=== PATIENT | male | born 1990 | race Two or more races ===

== ENCOUNTER 2025-01-11 07:52 | Emergency (ER) | payer MEDICAID, SELFPAY ==
[2025-01-11 07:55] VITALS: PULSE 104; RESP 16; O2SAT 95; BMI 26.1
[2025-01-11 08:00] VITALS: BP 153/103; PULSE 92; RESP 16; TEMP 36.9; O2SAT 96
--- NOTE | 2025-01-11 08:08 | EKG_ITS ---
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
--- NOTE | 2025-01-11 08:18 | XR_ITS ---
Examination: CT brain head without contrast. 2-D sagittal coronal reconstructions Date and time of exam: January 11, 2025, 0858 hours INDICATIONS: Onset altered mental status today CTDI: vol (mGy): 54.8 DLP: (mGycm): 1110 Technique: Multiple CT axial sections of the brain have been obtained, 5 mm slice thickness. Contrast has not been administered. 2-D sagittal, coronal reconstructions have been obtained Low dose protocols were performed. One or more of the following dose reduction techniques were used; automated exposure control, adjustment of the mA and/or KV according to patient size, use of iterative reconstruction technique. Findings: No significant ventricular enlargement. Intra-axial or extra-axial hemorrhage density is not seen. No mass effect or midline shift Basal cisterns are not remarkable. Fourth ventricle is midline. Cranial vault intact. Impression: Negative for acute hemorrhage, mass effect or midline shift Advise clinical correlation and follow-up accordingly
[2025-01-11 08:23] VITALS: PULSE 78
[2025-01-11] MEDS: SODIUM CHLORIDE 0.9% 1000 ML 1,000 ML IV (08:29)
[2025-01-11] MEDS: FAMOTIDINE INJ 10 MG/ML VIAL 2 ML 20 MG IVP (08:30)
[2025-01-11] MEDS: LORazepam 2 MG/ML VIAL IVP (08:31)
[2025-01-11] MEDS: FOLIC ACID 1 MG TABLET PO (08:32)
[2025-01-11 08:43] LABS: Basophils # (Auto) 0.1 Thou/mm3 (0.0-0.2); Basophils % (Auto) 1 % (0-2.5); Eosinophils # (Auto) 0.1 Thou/mm3 (0.0-0.5); Eosinophils % (Auto) 2 % (0-10); Hematocrit 40.5 % (41.0-53.0); Hemoglobin 14.9 g/dL (13.5-16.0); Immature Granulocytes Auto 0.02 Thou/mm3 (0.00-0.00); Lymphocytes # (Auto) 1.4 Thou/mm3 (1.0-4.8); Lymphocytes % (Auto) 28 % (10-50); Mean Corpuscular HGB Conc 36.8 g/dl (31.0-37.0); Mean Corpuscular Hemoglobin 33.8 pg (25.0-35.0); Mean Corpuscular Volume 92 fL (80-100); Monocytes # (Auto) 0.5 Thou/mm3 (0.0-0.8); Monocytes % (Auto) 10 % (0-12); Neutrophils # (Auto) 3.0 Thou/mm3 (1.8-7.7); Neutrophils % (Auto) 60 % (37-80); Nucleated Red Blood Cell # 0.00 Thou/mm3 (0.00-0.00); Nucleated Red Blood Cell % 0 /100 WBC (0); RDW Standard Deviation 42.2 fL (35.1-43.9); Red Blood Count 4.41 Miln/mm3 (4.50-5.90); White Blood Count 5.0 Thou/mm3 (3.8-10.6)
[2025-01-11 08:48] LABS: Platelet Count 69 Thou/mm3 (140-440)
[2025-01-11 08:52] LABS: Ammonia 59 uMol/L (11-32)
[2025-01-11] MEDS: MULTIVITAMIN 15 ML UDC PO (09:06)
[2025-01-11] MEDS: THIAMINE INJ 100 MG/ML VIAL 2 ML IVP (09:06)
[2025-01-11 09:07] LABS: INR 1.2 (0.9-1.3); Prothrombin Time 12.4 Seconds (9.0-12.2)
[2025-01-11 09:34] LABS: Acetaminophen < 2.0 mcg/mL (10.0-20.0); Alanine Aminotransferase 107 U/L (10-49); Albumin, Serum 4.8 gm/dL (3.5-5.0); Albumin/Globulin Ratio 1.6 (1.2-2.2); Alcohol, Blood Medical 156.4 mg/dL (0-10.0); Alkaline Phosphatase 121 U/L (46-116); Anion Gap 21 (7-16); Aspartate Amino Transferase 188 U/L (0-34); BUN/Creatinine Ratio 8 Ratio (12-20); Bilirubin,Total 3.2 mg/dL (0.3-1.2); Blood Urea Nitrogen < 5 mg/dL (9-23); Calcium 9.3 mg/dL (8.3-10.6); Calcium (Corrected) 9.3 mg/dL (8.5-10.1); Carbon Dioxide 21.7 mMol/L (20.0-31.0); Chloride 95 mMol/L (98-107); Creatinine (Component) 0.6 mg/dL (0.6-1.3); Estimated Creatinine Clearance 148.0 mL/min (>60); Globulin 3.0 gm/dL (2.3-3.5); Glucose 181 mg/dL (74-106); Magnesium 1.6 mg/dL (1.6-2.6); Osmolality,Calculated 277 (275-295); Salicylate < 3.0 mg/dL; Sodium 138 mMol/L (136-145); Total Protein 7.8 gm/dL (5.7-8.2); Troponin I < 0.002 ng/mL (0.0-0.045); eGFR > 60 See Note
[2025-01-11 09:35] LABS: Potassium 2.7 mMol/L (3.4-5.1)
[2025-01-11 10:05] LABS: Slide Review Platelets confirmed
--- NOTE | 2025-01-11 10:29 | EDNOTE_ITS ---
ED Alcohol RME/HPI General Chief Complaint: Alcohol Stated Complaint: WITHDRAWAL Arrival date/time: 01/11/25 07:52 Limitations: no limitations RME / HPI RME / HPI narrative: 34 year old male with no stated medical history presents to the ED BIBA from home for evaluation of palpitations and feeling shaky today. Patient reports he drinks 2 large bottles (at least) a day of Vodka. Denies any shortness of breath, chest pain, cough, nausea, vomiting, hematemesis, or abdominal pain. Patient states he is a former recreational drug user and has not used any drugs recently. No other associated symptoms or complaints reported. Related Data Previous Rx's ?Medication ?Instructions ?Recorded chlordiazepoxide HCl 25 mg capsule 25 mg PO Q6H ALCOHO L WITHDRAWAL 01/11/25 #30 caps Allergies Allergy/AdvReac Type Severity Reaction Status Date / Time No Known Allergies Allergy Verified 01/11/25 08:02 Review of Systems Review of Systems Systems Reviewed: All systems reviewed, normal except as documented Past Medical History Past Medical History CARDIAC: Negative Congestive Heart Failure RESPIRATORY: Negative Chronic Obstructive Pulmonary Disease (COPD) GENITOURINARY: Negative Renal Disease ENDOCRINE: Negative Diabetes Mellitus Type 1 or Diabetes Mellitus Type 2 Family History OTHER FAMILY HX: Mother- alcoholism Social History SMOKING STATUS: Former smoker ED Exam General Limitations: Present no limitations General appearance: Present alert and in no apparent distress Head Head exam: Present atraumatic, normocephalic and normal inspection Eye Eye exam: Present normal appearance, PERRL and EOMI ENT ENT exam: Present normal exam, normal oropharynx and mucous membranes moist Neck Neck exam: Present normal inspection, full ROM and trachea midline Chest Chest inspection: Present normal inspection and symmetric chest wall rise Respiratory Respiratory exam: Present normal lung sounds bilaterally Cardiovascular Cardiovascular exam: Present regular rate, normal rhythm and normal heart sounds Abdominal Exam Abdominal exam: Present soft and normal bowel sounds Extremities Exam Extremities exam: Present normal inspection and full ROM Back Exam Back exam: Present normal inspection and full ROM Neurological Exam Neurological exam: Present alert, oriented X3, CN II-XII intact and other (No tremor or flap ) Psychiatric Psychiatric exam: Present normal affect and normal mood Skin Skin exam: Present warm, dry, intact and normal color Course Quality Measures none Orders Category Date Time Status Bedside Blood Glucose NOW Care 01/11/25 08:18 Active Testing Lead NOW Care 01/11/25 08:18 Active Continuous Pulse Oximetry NOW Care 01/11/25 08:18 Completed EKG (ED ONLY) *Do not use* NOW Care 01/11/25 08:08 Completed Insert IV NOW Care 01/11/25 08:18 Active NPO NOW Care 01/11/25 08:[address] head/brain wo con Stat Exams 01/11/25 08:18 Completed EKG (ED Only) Stat Exams 01/11/25 08:08 Draft US gall bladder Stat Exams 01/11/25 10:31 Completed Acetaminophen Stat Lab 01/11/25 08:25 Completed Alcohol, Blood Medical Stat Lab 01/11/25 08:25 Completed Ammonia Stat Lab 01/11/25 08:25 Completed BMP [Basic Metabolic Panel] Stat Lab 01/11/25 15:23 Completed CBC Stat Lab 01/11/25 08:25 Completed Comprehensive Metabolic Panel Stat Lab 01/11/25 08:25 Completed Drug Screen,Urine Stat Lab 01/11/25 10:34 Completed Magnesium Stat Lab 01/11/25 08:25 Completed Prothrombin Time with INR Stat Lab 01/11/25 08:25 Completed Salicylate Stat Lab 01/11/25 08:25 Completed Troponin I Stat Lab 01/11/25 08:25 Completed Famotidine Inj [Pepcid Inj] Med 01/11/25 08:21 Discontinued 20 mg IVP X1 ONE Folic Acid Med 01/11/25 08:20 Discontinued 1 mg PO X1 ONE LORazepam [Ativan Inj] Med 01/11/25 08:20 Discontinued 2 mg IVP X1 ONE Multivitamin. Med 01/11/25 08:20 Discontinued 15 ml PO X1 ONE POTASSIUM CHL 10 mEq IVPB [Kcl Ivpb] 100 ml Med 01/11/25 11:45 Discontinued IV Q1H POTASSIUM CHL 20 mEq IVPB [Kcl Ivpb] Med 01/11/25 10:31 Discontinued 20 meq in 100 ml IV Q2H Potassium Chloride [K-Dur] Med 01/11/25 10:31 Discontinued 40 meq PO X1 ONE Sodium Chloride 0.9% 1000 ml [Ns] 1,000 ml Med 01/11/25 08:18 Discontinued IV 1,000 mls/hr Sodium Chloride 0.9% 1000 ml [Ns] 1,000 ml Med 01/11/25 10:45 Active IV 125 mls/hr Thiamine Inj [Vitamin B-1 Inj] Med 01/11/25 08:30 Discontinued 100 mg IVP X1 ONE Thiamine Inj [Vitamin B-1 Inj] Med 01/11/25 08:30 Discontinued 100 mg IVP X1 ONE Oxygen Delivery NOW RT 01/11/25 08:18 Active Vital Signs Vital signs: Vital Signs Temperature 98.5 F 01/11/25 08:00 Pulse Rate 92 01/11/25 08:00 Respiratory Rate 16 01/11/25 08:00 Blood Pressure 153/103 H 01/11/25 08:00 Pulse Oximetry (%) 96 01/11/25 08:00 Oxygen Delivery Method Room Air 01/11/25 08:00 Pulse ox is 96% on room air which is adequate. Discharge Plan Plan Patient Disposition: HOME (Self Care) Patient condition on transfer: Stable Prescriptions/Referrals Prescriptions/Med Rec: New chlordiazepoxide HCl 25 mg capsule 25 mg PO Q6H MDD 4 Qty: 30 0RF Referrals: [facility] [Outside] - In 1 week Problem List Clinical Impression: Alcohol withdrawal syndrome, Alcoholic intoxication Patient/Caregiver Discharge Instructions Discharge Activity: activity as tolerated Education Materials: Alcohol Withdrawal: What to Expect Additional Instructions: Please stop drinking. Do not drink alcohol while taking the Librium. Follow-up with your primary care doctor in 1-2 days for recheck. You can return to the emergency department sooner if symptoms worsen or if you notice any new, concerning issues. Print Language: Sinhala Stand Alone Forms: [facility] Award Info., Patient Portal Info Letter Alcohol MDM Narrative MDM Narrative: Emili Kilpatrick am scribing for and in the presence of Dr. Kendall. Labs reviewed and the initial potassium was 2.7. Patient was given potassium 40meq po. Repeat potassium is 4.0. Patient remains clinically stable throughout the emergency department visit. We reviewed all the results, analysis, and treatment plans. Patient is amenable to discharge. Strict return precautions were outlined. Patient data External records reviewed:: None (No previous ER visits for review ) Clinical information provided by:: patient Social determinants that could affect healthcare access:: alcohol use Patient has the following chronic illnesses:: None reported How is presenting disease/condition affected by chronic disease/condition?: no chronic disease Evaluation data The following diagnostics were reviewed and interpreted by me:: lab results, radiology exam(s) and EKG tracing(s) (EKG @ 08:11 AM. Normal sinus rhythm, rate 81, moderate intraventricular conduction delay, no STEMI. ) Lab and/or radiology exams considered but not ordered:: None Interpretation Summary: Ordering Physician: Venkat Kendall MD Date of Service: 01/11/25 Procedure(s): CT head/brain wo con Accession Number(s): [id number] cc: Venkat Kendall MD; Michael Lennon MD; NO PRIMARY/FAMILY,PHYSICIAN~ Examination: CT brain head without contrast. 2-D sagittal coronal reconstructions Date and time of exam: January 11, 2025, 0858 hours INDICATIONS: Onset altered mental status today CTDI: vol (mGy): 54.8 DLP: (mGycm): 1110 Technique: Multiple CT axial sections of the brain have been obtained, 5 mm slice thickness. Contrast has not been administered. 2-D sagittal, coronal reconstructions have been obtained Low dose protocols were performed. One or more of the following dose reduction techniques were used; automated exposure control, adjustment of the mA and/or KV according to patient size, use of iterative reconstruction technique. Findings: No significant ventricular enlargement. Intra-axial or extra-axial hemorrhage density is not seen. No mass effect or midline shift Basal cisterns are not remarkable. Fourth ventricle is midline. Cranial vault intact. Impression: Negative for acute hemorrhage, mass effect or midline shift Advise clinical correlation and follow-up accordingly Dictated By: Michael Lennon MD Signed By: <Electronically signed by Michael Lennon MD in OV> 01/11/25 1000 Medications / Prescriptions Medications or Prescriptions considered but not ordered:: None Medication administrations:: Medication Administration History Sodium Chloride (Ns) 1,000 mls @ 125 mls/hr IV .Q8H ONE Stop: 01/11/25 18:44 Last Admin: 01/11/25 11:57 Dose: 125 mls/hr Documented By: ANIL Discontinued Medications Famotidine (Famotidine Inj 10 Mg/Ml Vial 2 Ml) 20 mg IVP X1 ONE Stop: 01/11/25 08:22 Last Admin: 01/11/25 08:30 Dose: 20 mg Documented By: ANIL Folic Acid (Folic Acid 1 Mg Tablet) 1 mg PO X1 ONE Stop: 01/11/25 08:21 Last Admin: 01/11/25 08:32 Dose: 1 mg Documented By: DB Sodium Chloride (Ns) 1,000 mls @ 1,000 mls/hr IV .Q1H ONE Stop: 01/11/25 09:17 Last Infusion: 01/11/25 09:36 Dose: Infused Documented By: Admin: 01/11/25 08:29 Dose: 1,000 mls/hr Documented By: ANIL Potassium Chloride (Kcl Ivpb) 20 meq in 100 mls @ 50 mls/hr IV Q2H ARI Stop: 01/11/25 14:30 Last Admin: 01/11/25 11:44 Dose: Not Given Documented By: ANIL Non-Admin Reason: Cancelled by Provider Potassium Chloride (Kcl Ivpb) 100 mls @ 100 mls/hr IV Q1H ARI Stop: 01/11/25 15:44 Last Infusion: 01/11/25 17:09 Dose: Infused Documented By: Admin: 01/11/25 15:49 Dose: 100 mls/hr Documented By: Infusion: 01/11/25 15:20 Dose: Infused Documented By: Admin: 01/11/25 14:05 Dose: 80 mls/hr Documented By: Infusion: 01/11/25 14:05 Dose: Infused Documented By: Admin: 01/11/25 13:06 Dose: 100 mls/hr Documented By: Infusion: 01/11/25 12:56 Dose: Infused Documented By: Admin: 01/11/25 11:56 Dose: 100 mls/hr Documented By: ANIL Lorazepam (Lorazepam 2 Mg/Ml Vial) 2 mg IVP X1 ONE Stop: 01/11/25 08:21 Last Admin: 01/11/25 08:31 Dose: 2 mg Documented By: ANIL Multivitamins/Minerals (Multivitamin 15 Ml Udc) 15 ml PO X1 ONE Stop: 01/11/25 08:21 Last Admin: 01/11/25 09:06 Dose: 15 ml Documented By: ANIL Potassium Chloride (Potassium Chloride 20 Meq Tabcr) 40 meq PO X1 ONE Stop: 01/11/25 10:32 Last Admin: 01/11/25 11:53 Dose: 40 meq Documented By: ANIL Thiamine HCl (Thiamine Inj 100 Mg/Ml Vial 2 Ml) 100 mg IVP X1 ONE Stop: 01/11/25 08:31 Thiamine HCl (Thiamine Inj 100 Mg/Ml Vial 2 Ml) 100 mg IVP X1 ONE Stop: 01/11/25 08:31 Last Admin: 01/11/25 09:06 Dose: 100 mg Documented By: DB See above Consultations Consultation(s) initiated? (list below): No Diagnosis Most likely diagnosis given after review of the tests above:: Alcohol withdrawal syndrome Alcohol intoxication Admission Indicated Admission indicated?: not indicated Admission Request Was there a request for admission?: No Disposition Plan Disposition Plan: Discharge Discharge Attestation Discharge Attestation: The patient and all family members were given an opportunity to ask questions and understood the discharge instructions. Discharge instructions specifically effects, indications for sooner follow up or return to the emergency department, and the expected course of current diagnosis. Patient condition: Stable
--- NOTE | 2025-01-11 10:31 | XR_ITS ---
Examination: Abdomen sonogram, Limited Date and time of exam: January 11, 2025, 1124 hours INDICATIONS: Cardiac palpitations today, elevated liver enzymes on laboratory examination today Technique: Real-time donovan scale transabdominal sonographic images of the upper abdomen obtained. Findings: Normal gallbladder Normal common bile duct 0.3 cm Pancreatic head 3.0 cm Liver 21.7 cm fatty infiltration Normal hepatopetal portal venous flow Patent IVC IMPRESSION: Normal gallbladder Significant hepatomegaly fatty infiltration no focal liver lesions
[2025-01-11 10:45] VITALS: BP 127/79; PULSE 99; RESP 18; TEMP 37.1; O2SAT 95
[2025-01-11 11:02] LABS: Amphetamine/Methamp Scrn,U Negative (Negative); Barbiturate Screen,Urine Negative (Negative); Benzodiazepines Screen,Urine Negative (Negative); Benzoylecgonine Screen, Ur Negative (Negative); Fentanyl Screen,Urine Negative (Negative); Opiate Screen,Urine Negative (Negative); THC Screen,Urine Negative (Negative)
[2025-01-11] MEDS: POTASSIUM CHL 10 mEq IVPB 100 ML 100 MEQ IV ×3 (11:56→15:49)
[2025-01-11] MEDS: SODIUM CHLORIDE 0.9% 1000 ML 1,000 ML 125 ML IV (11:57)
[2025-01-11 12:51] VITALS: BP 135/78; PULSE 105; RESP 20; TEMP 37.7; O2SAT 96
[2025-01-11] MEDS: POTASSIUM CHL 10 mEq IVPB 100 ML 80 MEQ IV (14:05)
[2025-01-11 16:00] LABS: Anion Gap 14 (7-16); BUN/Creatinine Ratio 8 Ratio (12-20); Blood Urea Nitrogen < 5 mg/dL (9-23); Calcium 8.7 mg/dL (8.3-10.6); Carbon Dioxide 23.4 mMol/L (20.0-31.0); Chloride 101 mMol/L (98-107); Creatinine (Component) 0.6 mg/dL (0.6-1.3); Estimated Creatinine Clearance 148.0 mL/min (>60); Glucose 143 mg/dL (74-106); Osmolality,Calculated 274 (275-295); Potassium 4.0 mMol/L (3.4-5.1); Sodium 138 mMol/L (136-145); eGFR > 60 See Note
[2025-01-11 18:04] VITALS: BP 117/85; PULSE 87; RESP 16; TEMP 36.7; O2SAT 99
== END 2025-01-11 18:04 | disposition home or self-care (01) ==
PROVIDERS: Emergency Provider Family Medicine
DX: F10.239 Alcohol dependence with withdrawal, unspecified (principal)
CPT/HCPCS: 36415; 70450; 76705; 80048; 80053; 80307; 80320; 80329; 82140; 83735; 84484; 85025; 85610; 93005; 96361; 96365; 96375; 99285; J2060; J3411; J3480; J3490; J7030; A9270; G0480

== ENCOUNTER 2025-02-09 13:44 | Inpatient (IN) | payer MEDICAID, SELFPAY ==
[2025-02-09] VITALS (8 sets, daily range): BP systolic 116–148; BP diastolic 69–91; PULSE 84–110; RESP 14–20; TEMP 36.6–37.1; O2SAT 95–99; BMI 25.2
--- NOTE | 2025-02-09 14:23 | EKG_ITS ---
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
--- NOTE | 2025-02-09 14:23 | XR_ITS ---
EXAMINATION: PA chest single view TECHNIQUE: Upright PA chest single view Date and time: February 09, 2025, 1453 hours INDICATIONS: Tachycardia dizziness shortness of breath today. FINDINGS: Normal heart size Mild elevation right hemidiaphragm. No pneumonia or pulmonary edema IMPRESSION: No active disease
--- NOTE | 2025-02-09 14:23 | PD.EDRME ---
Rapid Medical Screening Exam [facility] Arrival date/time: 02/09/25 13:44 34-year-old male with no known medical history presents to the emergency room with a chief complaint of palpitations and chest pain x 3 hours. Patient states he is a daily alcoholic drinker I have greeted and performed a focused initial assessment of this patient. A comprehensive ED assessment and evaluation of the patient, analysis of all test results, and completion of the medical decision making process will be conducted by additional ED providers. Chief Complaint: Arrhythmia/Palpitations Time Seen by Provider: 02/09/25 14:19 Vital signs: Vital Signs Temperature 98.8 F 02/09/25 14:13 Pulse Rate 100 02/09/25 14:13 Respiratory Rate 18 02/09/25 14:13 Blood Pressure 148/82 H 02/09/25 14:13 Pulse Oximetry (%) 95 02/09/25 14:13 Oxygen Delivery Method Room Air 02/09/25 14:13 Vital signs reviewed by provider: Yes Exam: Strong and regular rhythm Clear bilateral lung sounds GCS of 15 Clinical Impression: Alcohol withdrawals/STEMI/NSTEMI
--- NOTE | 2025-02-09 15:02 | PD.EDALCOH ---
ED Alcohol RME/HPI General Chief Complaint: Arrhythmia/Palpitations Stated Complaint: HEART PALPITATIONS SINCE AM, C/P, ETOH ABUSE HX Time Seen by Provider: 02/09/25 14:19 Arrival date/time: 02/09/25 13:44 RME / HPI RME / HPI narrative: 02/09/25 13:44 34-year-old male with no known medical history presents to the emergency room with a chief complaint of palpitations and chest pain x 3 hours. Patient states he is a daily alcoholic drinker I have greeted and performed a focused initial assessment of this patient. A comprehensive ED assessment and evaluation of the patient, analysis of all test results, and completion of the medical decision making process will be conducted by additional ED providers. DR. IRBY MAIN ED EVALUATION 34 year old male with history of alcohol abuse, presents to the ED for evaluation of palpitations, feeling shaky, and anxious today. Accompanied by nausea and nonbloody vomiting. Patient reports he drinks 2 large bottles of Vodka a day over the last month. 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 Patient states he was evaluated here for similar symptoms 1 month ago and sent home with a prescription for his alcohol withdrawal. However, states he only took half of the medication and continued to drink. While in the ED, patient states he wants to stop drinking. Denies going to alcohol anonymous or rehab. Denies any shortness of breath, chest pain, cough, or abdominal pain. Exam: Strong and regular rhythm Clear bilateral lung sounds GCS of 15 Impression: Alcohol withdrawals/STEMI/NSTEMI Related Data Previous Rx's ?Medication ?Instructions ?Recorded chlordiazepoxide HCl 25 mg capsule 25 mg PO Q6H ALCOHOL WITHDRAWAL 01/11/25 #30 caps Allergies Allergy/AdvReac Type Severity Reaction Status Date / Time No Known Allergies Allergy Verified 02/09/25 13:48 Review of Systems Review of Systems Systems Reviewed: All systems reviewed, normal except as documented Past Medical History Past Medical History CARDIAC: Negative Congestive Heart Failure RESPIRATORY: Negative Chronic Obstructive Pulmonary Disease (COPD) GENITOURINARY: Negative Renal Disease ENDOCRINE: Negative Diabetes Mellitus Type 1 or Diabetes Mellitus Type 2 Social History SMOKING STATUS: Never smoker ED Exam Narrative Physical exam: Constitutional: Awake, alert, appears uncomfortable, positive odor of etoh HEENT: Normocephalic, atraumatic, extraocular movements intact. Neck: Supple CV: Regular rate and rhythm, no murmurs/rubs/gallops Lungs: Clear to auscultation BL, no respiratory distress. Abd: Soft, NT, ND, no HSM noted to palpation Extremities: No deformities, no edema noted Neuro: AAOx3, CN 2-12 GIBL, no acute neuro deficit noted. Skin: Warm, dry, intact Course Course Course Narrative: 1800h: Care signed out to Dr. Gerardo pending reevaluation and final disposition. Quality Measures none Orders Category Date Time Status EKG (ED ONLY) *Do not use* NOW Care 02/09/25 14:23 Completed EKG (ED Only) Stat Exams 02/09/25 14:23 Draft XR chest 1V portable Stat Exams 02/09/25 14:23 Completed Alcohol, Blood Medical Stat Lab 02/09/25 15:26 Completed B-Type Natriuretic Peptide Stat Lab 02/09/25 15:26 Completed CBC Stat Lab 02/09/25 15:26 Completed Comprehensive Metabolic Panel Stat Lab 02/09/25 15:26 Completed Drug Screen,Urine Stat Lab 02/09/25 15:26 Completed Free T4 (Free Thyroxine) Stat Lab 02/09/25 15:26 Completed Magnesium Stat Lab 02/09/25 15:26 Completed Partial Thromboplastin Time Stat Lab 02/09/25 15:26 Completed Prothrombin Time with INR Stat Lab 02/09/25 15:26 Completed TSH [Thyroid Stimulating Hormone] Stat Lab 02/09/25 15:26 Completed Troponin I Stat Lab 02/09/25 15:26 Completed Urinalysis, C/S if Indicated Stat Lab 02/09/25 15:26 Completed LORazepam [Ativan Inj] Med 02/09/25 15:12 Discontinued 1 mg IVP X1 ONE Ondansetron Inj [Zofran Inj] Med 02/09/25 15:13 Discontinued 4 mg IVP X1 ONE Ringers Lactated 1000 ml [Lactated Ringers] 1,000 ml Med 02/09/25 15:12 Discontinued IV 999 mls/hr Thiamine [Vitamin B-1] Med 02/09/25 15:13 Discontinued 100 mg PO X1 ONE Vital Signs Vital signs: Vital Signs Temperature 98.8 F 02/09/25 14:13 Pulse Rate 100 02/09/25 14:13 Respiratory Rate 18 02/09/25 14:13 Blood Pressure 148/82 H 02/09/25 14:13 Pulse Oximetry (%) 95 02/09/25 14:13 Oxygen Delivery Method Room Air 02/09/25 14:13 Pulse ox is 95% on room air which is adequate. Discharge Plan Prescriptions/Referrals Prescriptions/Med Rec: No Action chlordiazepoxide HCl 25 mg capsule 25 mg PO Q6H MDD 4 Qty: 30 0RF Referrals: No Primary/Family,Physician [Primary Care Provider] - In 1 week Problem List Clinical Impression: Palpitations, Alcohol abuse Patient/Caregiver Discharge Instructions Print Language: Azeri Alcohol MDM Narrative MDM Narrative: Emili Kilpatrick am scribing for and in the presence of Dr. Irby. Patient data External records reviewed:: [facility] previous records Clinical information provided by:: patient Social determinants that could affect healthcare access:: alcohol use Patient has the following chronic illnesses:: Alcohol abuse How is presenting disease/condition affected by chronic disease/condition?: exacerbated by Evaluation data The following diagnostics were reviewed and interpreted by me:: lab results, radiology exam(s) and EKG tracing(s) (EKG @ 14:25h, interpreted by me, sinus tachycardia with short CO interval, rate 105, no STEMI. ) Lab and/or radiology exams considered but not ordered:: None Interpretation Summary: Ordering Physician: Gordon Mcghee Date of Service: 02/09/25 Procedure(s): XR chest 1V portable Accession Number(s): [id number] cc: Gordon Mcghee; Michael Lennon MD~ EXAMINATION: PA chest single view TECHNIQUE: Upright PA chest single view Date and time: February 09, 2025, 1453 hours INDICATIONS: Tachycardia dizziness shortness of breath today. FINDINGS: Normal heart size Mild elevation right hemidiaphragm. No pneumonia or pulmonary edema IMPRESSION: No active disease Dictated By: Michael Lennon MD Signed By: <Electronically signed by Michael Lennon MD in OV> 02/09/25 1454 Medications / Prescriptions Medications or Prescriptions considered but not ordered:: None Medication administrations:: Medication Administration History Discontinued Medications Lactated Ringer's (Lactated Ringers) 1,000 mls @ 999 mls/hr IV .Q1H1M ONE Stop: 02/09/25 16:12 Last Admin: 02/09/25 16:21 Dose: 999 mls/hr Documented By: CS Lorazepam (Lorazepam 2 Mg/Ml Vial) 1 mg IVP X1 ONE Stop: 02/09/25 15:13 Last Admin: 02/09/25 16:36 Dose: 1 mg Documented By: CS Ondansetron HCl (Ondansetron Inj 2 Mg/Ml Inj 2 Ml) 4 mg IVP X1 ONE; Protocol Stop: 02/09/25 15:14 Last Admin: 02/09/25 16:22 Dose: 4 mg Documented By: CS Thiamine HCl (Thiamine 100 Mg Tablet) 100 mg PO X1 ONE Stop: 02/09/25 15:14 Last Admin: 02/09/25 16:26 Dose: 100 mg Documented By: CS See above Consultations Consultation(s) initiated? (list below): No Diagnosis Most likely diagnosis given after review of the tests above:: Alcohol intoxication Admission Indicated Admission indicated?: not indicated Explain why admission is indicated or not indicated:: Signed out to Dr. Gerardo pending final disposition. Admission Request Was there a request for admission?: No Disposition Plan Disposition Plan: other (specify) (Signed out to Dr. Gerardo )
[2025-02-09 15:35] LABS: Collection Type, Urine Clean Catch; Squamous Epithelial Cell,Urine 0 /hpf (0-5)
[2025-02-09 15:48] LABS: Bacteria,Urine Rare; Bilirubin,Urine Negative (Negative); Blood,Urine Negative (Negative); Color,Urine Yellow (Lt Yel-Yel); Culture Indicated,Urine Not Indicated; Glucose, Urine Negative (Negative); Ketones,Urine Negative (Negative); Leukocyte Esterase,Urine Negative (Negative); Nitrite,Urine Negative (Negative); PH,Urine 6.5 (5.0-7.0); Protein,Urine 1+ (Neg - Trace); RBC,Urine 4 /hpf (0-3); Specific Gravity,Urine 1.010 (1.001-1.035); Urobilinogen,Urine Negative mg/dL (0.0-1.0); WBC,Urine 2 /hpf (0-5)
[2025-02-09 15:49] LABS: Amphetamine/Methamp Scrn,U Negative (Negative); Barbiturate Screen,Urine Negative (Negative); Benzodiazepines Screen,Urine Positive (Negative); Benzoylecgonine Screen, Ur Negative (Negative); Fentanyl Screen,Urine Negative (Negative); Opiate Screen,Urine Negative (Negative); THC Screen,Urine Negative (Negative)
[2025-02-09 15:50] LABS: Basophils # (Auto) 0.1 Thou/mm3 (0.0-0.2); Basophils % (Auto) 1 % (0-2.5); Eosinophils # (Auto) 0.2 Thou/mm3 (0.0-0.5); Eosinophils % (Auto) 3 % (0-10); Hematocrit 35.9 % (41.0-53.0); Hemoglobin 12.5 g/dL (13.5-16.0); Immature Granulocytes Auto 0.05 Thou/mm3 (0.00-0.00); Lymphocytes # (Auto) 1.7 Thou/mm3 (1.0-4.8); Lymphocytes % (Auto) 22 % (10-50); Mean Corpuscular HGB Conc 34.8 g/dl (31.0-37.0); Mean Corpuscular Hemoglobin 33.4 pg (25.0-35.0); Mean Corpuscular Volume 96 fL (80-100); Monocytes # (Auto) 0.4 Thou/mm3 (0.0-0.8); Monocytes % (Auto) 5 % (0-12); Neutrophils # (Auto) 5.1 Thou/mm3 (1.8-7.7); Neutrophils % (Auto) 68 % (37-80); Nucleated Red Blood Cell # 0.00 Thou/mm3 (0.00-0.00); Nucleated Red Blood Cell % 0 /100 WBC (0); Platelet Count 104 Thou/mm3 (140-440); RDW Standard Deviation 50.5 fL (35.1-43.9); Red Blood Count 3.74 Miln/mm3 (4.50-5.90); White Blood Count 7.5 Thou/mm3 (3.8-10.6)
[2025-02-09 16:08] LABS: INR 1.1 (0.9-1.3); Partial Thromboplastin Time 30.6 Seconds (22.0-36.0); Prothrombin Time 11.5 Seconds (9.0-12.2)
[2025-02-09 16:09] LABS: B-Type Natriuretic Peptide < 20 pg/mL (0-100)
[2025-02-09 16:20] LABS: Alanine Aminotransferase 45 U/L (10-49); Albumin, Serum 4.7 gm/dL (3.5-5.0); Albumin/Globulin Ratio 1.3 (1.2-2.2); Alcohol, Blood Medical 317.6 mg/dL (0-10.0); Alkaline Phosphatase 194 U/L (46-116); Anion Gap 12 (7-16); Aspartate Amino Transferase 163 U/L (0-34); BUN/Creatinine Ratio 10 Ratio (12-20); Bilirubin,Total 4.4 mg/dL (0.3-1.2); Blood Urea Nitrogen < 5 mg/dL (9-23); Calcium 9.0 mg/dL (8.3-10.6); Calcium (Corrected) 9.0 mg/dL (8.5-10.1); Carbon Dioxide 24.7 mMol/L (20.0-31.0); Chloride 105 mMol/L (98-107); Creatinine (Component) 0.5 mg/dL (0.6-1.3); Estimated Creatinine Clearance 191.4 mL/min (>60); Free T4 (Free Thyroxine) 1.46 ng/dL (0.89-1.76); Globulin 3.5 gm/dL (2.3-3.5); Glucose 118 mg/dL (74-106); Magnesium 2.1 mg/dL (1.6-2.6); Osmolality,Calculated 281 (275-295); Potassium 3.4 mMol/L (3.4-5.1); Sodium 142 mMol/L (136-145); Thyroid Stimulating Hormone 1.28 uIU/mL (0.55-4.78); Total Protein 8.2 gm/dL (5.7-8.2); Troponin I < 0.002 ng/mL (0.0-0.045); eGFR > 60 See Note
[2025-02-09 16:21] LABS: Clarity,Urine Hazy (Clear/Hazy)
[2025-02-09] MEDS: RINGERS LACTATED 1000 ML 1,000 ML 999 ML IV ×2 (16:21→21:25)
[2025-02-09] MEDS: ONDANSETRON INJ 2 MG/ML INJ 2 ML 4 MG IVP (16:22)
[2025-02-09] MEDS: THIAMINE 100 MG TABLET PO (16:26)
[2025-02-09] MEDS: LORazepam 2 MG/ML VIAL 1 MG IVP (16:36)
--- NOTE | 2025-02-09 18:33 | PD.EDADDENDU ---
Emergency Room Addendum Addendum Narrative: 1800: Care assumed from Dr. Sarmiento (emergency physician). Past medical, surgical, social and family history reviewed. Vitals and home medications reviewed. Results and treatment plan discussed. I will assume the care of the patient at this time and will follow the patient, pending labs and MTF. The following addendum documentation note is intended to reflect any pending information, findings, or radiology results not included in the patient?s initial chart by the previous shift scribe. 20:42 - Assumed care of this long-term alcoholic presenting with presumptive withdrawal who drinks up to 1 quart of Vodka and a 12-pack of beer per day, most recently this AM, with palpitations and lightheadedness, although no near-syncope. Denies sustained chest pain. Patient tachycardic throughout ED course with slight tremor. Additionally, patient is mildly jaundiced, and likely experiencing alcohol hepatitis. Patient counseled at length about alcohol cessation and will place on B-jame and Benzodiazepine taper with recommendation to include close F/U with PMD for further evaluation. Patient acknowledges that if he were to drink alcohol with Benzodiazepine that will be prescribed, that this may lead to . Final diagnosis is alcohol withdrawal. 22:18 - Discussed with resident physician, Dr. Tavares, for admission. Reviewed the patient?s HPI, PMHx, lab and/or radiology results. Discussed treatment plan. Will consult an admission to the hospitalist. 22:26 - Patient became excessively tachycardic after assuming upright position at time of dc. Hospitalist consulted for consideration of admission for withdrawal syndrome. Critical Care Time Critical Care Time Critical Care Time: Yes Total Critical Care Time (min.): 40 Attestation: The high probability of sudden, clinically significant deterioration in the patient?s condition required the highest level of my preparedness to intervene urgently. The services I provided to this patient were to treat and/or prevent clinically significant deterioration. Services included the following: chart data review, reviewing nursing notes and/or old charts, documentation time, senior solutions workflow consultant collaboration regarding findings and treatment options, medication orders and management, direct patient care, vital sign assessments and ordering, interpreting and reviewing diagnostic studies and lab tests. Aggregate critical care time includes only time during which I was engaged in work directly related to the patient?s care, as described above, whether at bedside or elsewhere in the Emergency Department. It did not include time spent performing other reported procedures or the services of residents, students, nurses or physician assistants.
[2025-02-09] MEDS: METOPROLOL TARTRATE 25 MG TABLET 12.5 MG PO (20:47)
[2025-02-09] MEDS: MIDAZOLAM INJ 1 MG/ML VIAL 2 ML 2 MG IVP (22:46)
[2025-02-09] MEDS: METOCLOPRAMIDE INJ 5 MG/ML VIAL 2 ML 10 MG IVP (22:47)
--- NOTE | 2025-02-09 23:50 | PD.RESHP ---
Documentation for date of: 02/09/25 [facility] History of Present Illness History of present illness: 34-year-old male with a history of heavy alcohol use presents to the ED with complaints of palpitations, shakiness, anxiety, nausea, and nonbloody vomiting. He reports consuming 12 pack of Budweiser's and 1 bottle of vodka daily for the past month, with his last drink 1 hour prior to arrival. The patient was previously evaluated in the ED for similar symptoms one month ago and was prescribed medication for alcohol withdrawal. However, he admits to taking only half of the prescribed medication and continuing to drink. While in the ED, the patient expresses a desire to stop drinking but has not sought help through Alcoholics Anonymous or formal rehabilitation. He denies any chest pain, shortness of breath, cough, or abdominal pain. ED course: Initial vitals include T98.8, BP 148/82, HR 100, RR 18, O2 sat 95% on room air. Notable labs include hemoglobin 12.5, MCV 96, sodium 142, potassium 3.4, creatinine 0.5, glucose 118, T. bili 4.4, D bili 3.6, AST 163, ALT 45. Chest x-ray clear. EKG showed sinus tachycardia, rate 104, QTc 456 ms. UA clear. Past medical history: As stated above. Allergies: NKDA. Family history: Noncontributory. Social history: Chronic alcohol use, no smoking, uses cocaine, last used 1 month ago. Patient admitted for alcohol withdrawals. Review of Systems Review of Systems Narrative Review of Systems: All systems reviewed negative unless stated otherwise above. Exam Vital Signs Temp Pulse Resp BP Pulse Ox O2 Del Method 97.8 F 92 20 126/81 98 Room Air 02/09/25 22:15 02/09/25 23:13 02/09/25 23:13 02/09/25 23:13 02/09/25 23:13 02/09/25 23:13 Narrative Exam General: AOx3, no acute distress, able to speak full sentences, bilateral tremors of the hands, Japanese-speaking HEENT: NC/AT, mucous membranes moist, bilateral sclera anicteric Cardiovascular: regular rate and rhythm, S1/S2 present, no murmurs appreciated Pulmonary: clear to auscultation bilaterally, no rales/rhonchi/wheezes Abdominal: soft, non-tender, non-distended, no rebound/guarding, normal bowel sounds present Musculoskeletal: normal ROM, no peripheral edema Skin: warm and dry, intact, no rashes, Neuro: CN II-XII intact, no focal deficits Results: Labs 02/10/25 05:45 02/10/25 05:45 Labs: Short CBC 02/09/25 Range/Units 15:26 WBC 7.5 (3.8-10.6) Thou/mm3 Hgb 12.5 L (13.5-16.0) g/dL Hct 35.9 L (41.0-53.0) % Plt Count 104 L D (140-440) Thou/mm3 BMP 02/09/25 15:26 Sodium 142 Potassium 3.4 Chloride 105 Carbon Dioxide 24.7 BUN < 5 L Creatinine 0.5 L Glucose 118 H Calcium 9.0 Cardiac Enzymes 02/09/25 Range/Units 15:26 Troponin I < 0.002 (0.0-0.045) ng/mL Liver Function 02/09/25 Range/Units 15:26 Total Bilirubin 4.4 H (0.3-1.2) mg/dL AST 163 H (0-34) U/L ALT 45 (10-49) U/L Alkaline Phosphatase 194 H (46-116) U/L Albumin 4.7 (3.5-5.0) gm/dL Urine 02/09/25 Range/Units 15:26 Urine Color Yellow (Lt Yel-Yel) Urine Clarity Hazy (Clear/Hazy) Urine pH 6.5 (5.0-7.0) Ur Specific [place] 1.010 (1.001-1.035) Urine Protein 1+ A (Neg - Trace) Urine Glucose (UA) Negative (Negative) Quality Measures Quality Measures VTE prophylaxis Medications Home Medications and Allergies Allergies Allergy/AdvReac Type Severity Reaction Status Date / Time No Known Allergies Allergy Verified 02/09/25 13:48 Visit Medications Acetaminophen (Acetaminophen 325 Mg Tablet) 650 mg PO Q6H PRN PRN Reason: PAIN (1-3) OR FEVER > 100.4 Stop: 03/11/25 23:41 Enoxaparin Sodium (Enoxaparin Sod Inj 40 Mg/0.4 Ml Syringe) 40 mg SC QDAY ARI Stop: 02/24/25 08:59 Folic Acid (Folic Acid 1 Mg Tablet) 1 mg PO QDAY [facility] Stop: 03/12/25 08:59 Lactated Ringer's (Lactated Ringers) 1,000 mls @ 75 mls/hr IV .[id number] ARI Stop: 02/10/25 13:04 Ondansetron HCl (Ondansetron Inj 2 Mg/Ml Inj 2 Ml) 4 mg IVP Q6H PRN; Protocol PRN Reason: NAUSEA OR VOMITING Stop: 03/11/25 23:41 Sennosides (Senna Tablet) 1 tab PO QDAY PRN; Protocol PRN Reason: constipation Stop: 03/11/25 23:41 Thiamine HCl (Thiamine 100 Mg Tablet) 500 mg PO X1 ONE Stop: 02/09/25 23:48 Discontinued Medications Lactated Ringer's (Lactated Ringers) 1,000 mls @ 999 mls/hr IV .Q1H1M ONE Stop: 02/09/25 16:12 Last Infusion: 02/09/25 19:08 Dose: Infused Lactated Ringer's (Lactated Ringers) 1,000 mls @ 999 mls/hr IV .Q1H1M ONE Stop: 02/09/25 22:24 Last Infusion: 02/09/25 22:28 Dose: Infused Lorazepam (Lorazepam 2 Mg/Ml Vial) 1 mg IVP X1 ONE Stop: 02/09/25 15:13 Last Admin: 02/09/25 16:36 Dose: 1 mg Lorazepam (Lorazepam 0.5 Mg Tablet) 1 mg PO X1 ONE Stop: 02/09/25 20:44 Last Admin: 02/09/25 20:47 Dose: 1 mg Metoclopramide HCl (Metoclopramide Inj 5 Mg/Ml Vial 2 Ml) 10 mg IVP X1 ONE; Protocol Stop: 02/09/25 22:36 Last Admin: 02/09/25 22:47 Dose: 10 mg Metoprolol Tartrate (Metoprolol Tartrate 25 Mg Tablet) 12.5 mg PO X1 ONE Stop: 02/09/25 20:44 Last Admin: 02/09/25 20:47 Dose: 12.5 mg Midazolam HCl (Midazolam Inj 1 Mg/Ml Vial 2 Ml) 2 mg IVP X1 ONE Stop: 02/09/25 22:36 Last Admin: 02/09/25 22:46 Dose: 2 mg Ondansetron HCl (Ondansetron Inj 2 Mg/Ml Inj 2 Ml) 4 mg IVP X1 ONE; Protocol Stop: 02/09/25 15:14 Last Admin: 02/09/25 16:22 Dose: 4 mg Thiamine HCl (Thiamine 100 Mg Tablet) 100 mg PO X1 ONE Stop: 02/09/25 15:14 Last Admin: 02/09/25 16:26 Dose: 100 mg Assessment & Plan Plan 34-year-old male with a history of heavy alcohol use presents to the ED with complaints of palpitations, shakiness, anxiety, nausea, and nonbloody vomiting. Patient admitted for alcohol withdrawals. #Alcohol intoxication #Alcohol withdrawal Patient has previous admissions for alcohol intoxication, alcohol level on admission 317.6 Last drink was 1 hour before presentation to ED CIWA at the time of ED presentation was 8, received lorazepam 1 mg IV x 1, with CIWA improvement to 4 No concern of delirium tremens at this time No hallucinations at this time Will need to continue monitoring symptoms including hallucinations, restlessness, vital sign changes including tachycardia to monitor for withdrawal Plan: ? CIWA protocol ? CIWA 2-6 --> lorazepam 0.5 mg p.o. every 2 hours as needed ? CIWA 7-11 --> midazolam 2 mg IV every 2 hours as needed ? CIWA 12?20 --> midazolam 4 mg IV every 2 hours as needed ? Thiamine 500 mg PO x 1 followed by 100 mg PO daily ? Folic acid 1 mg PO daily ? Seizure precautions ? Aspiration precautions #Hyperbilirubinemia #Transaminitis #Acute liver injury DDx for hyperbilirubinemia include liver disease, hepatitis, autoimmune hepatitis, gallstones Gallbladder ultrasound 01/11 showed normal gallbladder, significant hepatomegaly, fatty infiltration no focal liver lesions Gallbladder ultrasound (prelim read) 02/10 showed fatty liver infiltration, suspicious for hepatic cirrhosis, normal gallbladder On admission T. bili 4.4, D bili 3.6, AST 163, ALT 45, alk phos 194 Plan ? Monitor LFTs with a.m. labs ? Follow-up official gallbladder ultrasound read Health Maintenance: Diet: Clear liquid diet GI prophylaxis: None DVT prophylaxis: Lovenox 40 mg SC daily Antibiotics: None CODE STATUS: Full Disposition: Telemetry Case discussed with my attending Dr. Recinos, and senior resident, Dr. Tavares. Kush Vargas MD PGY-1 Attending Provider Attestation/Addendum After examination of the patient and review of the clinical data I feel that this patient needs admission to the hospital for further treatment/evaluation. Plan of care discussed with patient and is in agreement. I Elayne Recinos MD, attest that I was physically present for beltran portions of evaluation, and examined patient, labs and imagings and plan of care were discussed with IM residents team, and I agree with the findings and plans documented above.
[2025-02-09 23:54] LABS: Bilirubin,Direct 3.6 mg/dL (0.0-0.3)
[2025-02-10] VITALS (9 sets, daily range): BP systolic 112–134; BP diastolic 68–81; PULSE 74–107; RESP 10–97; TEMP 36.1–36.9; O2SAT 94–99; BMI 23.9
--- NOTE | 2025-02-10 | XR_ITS ---
Examination: Abdomen sonogram, Limited Date and time of exam: February 10, 2025, 0020 hours INDICATIONS: Epigastric pain cardiac palpitations today Technique: Real-time donovan scale transabdominal sonographic images of the upper abdomen obtained. Findings: Normal gallbladder Normal common bile duct 0.3 cm Pancreatic head 3.9 cm Liver 19.6 cm fatty infiltration lobular contour Normal hepatopetal portal venous flow Patent IVC IMPRESSION: Normal gallbladder Prominent pancreatic head, clinical correlation advised. Moderate hepatomegaly, primarily hepatocellular disease
[2025-02-10] MEDS: THIAMINE 100 MG TABLET 500 MG PO (00:22)
[2025-02-10] MEDS: RINGERS LACTATED 1000 ML 1,000 ML 75 ML IV (00:24)
--- NOTE | 2025-02-10 02:14 | PRELIM_ITS ---
Ultrasound Abdomen. February 10, 2025 at 0020 hours Clinical history: Elevated total bilirubin. Technique: Grayscale and color flow images of the abdomen are provided. Hepatic and portal veins were also imaged with color flow images. Comparison: No prior study is available for comparison. Findings: Gallbladder wall is 3 mm thick. No gallbladder calculi or sludge. Common bile duct is 3 mm in diameter. The pancreas is unremarkable. The liver is mildly enlarged, 19.6 cm long and diffusely fatty infiltrated. Hepatic contour is nodular. Main portal vein is antegrade. Inferior vena cava is patent. Impression: 1. Fatty liver infiltration. 2. Suspicious for hepatic cirrhosis. 3. Normal gallbladder. Report Electronically Signed By: Maynor Melara 02/10/2025 2:14:01 AM [EST]
[2025-02-10 06:01] LABS: Basophils # (Auto) 0.1 Thou/mm3 (0.0-0.2); Basophils % (Auto) 1 % (0-2.5); Eosinophils # (Auto) 0.1 Thou/mm3 (0.0-0.5); Eosinophils % (Auto) 2 % (0-10); Hematocrit 31.2 % (41.0-53.0); Hemoglobin 11.1 g/dL (13.5-16.0); Immature Granulocytes Auto 0.04 Thou/mm3 (0.00-0.00); Lymphocytes # (Auto) 1.1 Thou/mm3 (1.0-4.8); Lymphocytes % (Auto) 17 % (10-50); Mean Corpuscular HGB Conc 35.6 g/dl (31.0-37.0); Mean Corpuscular Hemoglobin 33.8 pg (25.0-35.0); Mean Corpuscular Volume 95 fL (80-100); Monocytes # (Auto) 0.3 Thou/mm3 (0.0-0.8); Monocytes % (Auto) 5 % (0-12); Neutrophils # (Auto) 4.8 Thou/mm3 (1.8-7.7); Neutrophils % (Auto) 75 % (37-80); Nucleated Red Blood Cell # 0.00 Thou/mm3 (0.00-0.00); Nucleated Red Blood Cell % 0 /100 WBC (0); RDW Standard Deviation 48.7 fL (35.1-43.9); Red Blood Count 3.28 Miln/mm3 (4.50-5.90); White Blood Count 6.4 Thou/mm3 (3.8-10.6)
[2025-02-10 06:03] LABS: Platelet Count 76 Thou/mm3 (140-440)
[2025-02-10 06:29] LABS: Glucose Estimated Average 97 mg/dL (80-131); Hemoglobin A1C 5.0 % Hgb (4.8-6.0)
[2025-02-10 06:49] LABS: Slide Review Platelets confirmed
[2025-02-10 07:00] LABS: Alanine Aminotransferase 37 U/L (10-49); Albumin, Serum 4.0 gm/dL (3.5-5.0); Albumin/Globulin Ratio 1.2 (1.2-2.2); Alkaline Phosphatase 157 U/L (46-116); Anion Gap 11 (7-16); Aspartate Amino Transferase 123 U/L (0-34); BUN/Creatinine Ratio 10 Ratio (12-20); Bilirubin,Total 4.3 mg/dL (0.3-1.2); Blood Urea Nitrogen < 5 mg/dL (9-23); Calcium 9.0 mg/dL (8.3-10.6); Calcium (Corrected) 9.0 mg/dL (8.5-10.1); Carbon Dioxide 25.5 mMol/L (20.0-31.0); Cardiac Risk Estimate 11.3 RATIO (4.0-6.7); Chloride 104 mMol/L (98-107); Cholesterol 338 mg/dL (132-200); Creatinine (Component) 0.5 mg/dL (0.6-1.3); Estimated Creatinine Clearance 191.4 mL/min (>60); Globulin 3.3 gm/dL (2.3-3.5); Glucose 102 mg/dL (74-106); HDL Cholesterol 30 mg/dL (40-60); LDL Cholesterol,Calculated 252 mg/dL (0-130); Magnesium 1.4 mg/dL (1.6-2.6); Osmolality,Calculated 276 (275-295); Phosphorous 4.1 mg/dL (2.4-5.1); Potassium 3.6 mMol/L (3.4-5.1); Sodium 140 mMol/L (136-145); Total Protein 7.3 gm/dL (5.7-8.2); Triglycerides 280 mg/dL (30-150); eGFR > 60 See Note
--- NOTE | 2025-02-10 07:48 | ESPR_ITS ---
<Statement entered by Felipe Alarcon MD - 02/20/25 08:31> I reviewed above note and agree with findings and plans. I have also personally examined the patient with medicine team and went over assessment and plan with medical team including internet security specialist and resident physician. <Statement entered by Giovanni Ku MD - 02/10/25 17:33> Patient is seen at bedside patient's is also at bedside. CIWA score is less than 5 today patient denies anxiety, hallucinations or agitation. Patient has mild tremulous. Tolerating oral diet. Patient is extensively counseled on cessation of alcohol. Total bilirubin is 4.3, AST 123, ALT 37. Ultrasound of the liver shows moderate hepatomegaly and prominent pancreatic head. Patient was seen and examined by me personally. I have directly supervised and reviewed documentation by the team resident and agree with its findings. ------- Plan of care was discussed with the attending, Dr. Agnes Ku, PGY-2 Documentation for date of: 02/10/25 Subjective Subjective Interval history: patient seen and examined at bedside with present admitted for etoh withdrawl. CIWA protocol pt states that he was feeling tremulous. but denies anxiety, visual or auditory hallucinations ciwa scores low 1-4 pt with systolic murmor, states he has never seen a cook ship before, pending echo. Exam Vital Signs Temp Pulse Resp BP Pulse Ox O2 Del Method 98.1 F 87 20 134/78 H 98 Room Air 02/10/25 04:35 02/10/25 04:35 02/10/25 04:35 02/10/25 04:35 02/10/25 04:35 02/10/25 04:35 Narrative Exam General: AOx3, no acute distress, able to speak full sentences, nontremulous on exam today HEENT: NC/AT, mucous membranes moist, bilateral sclera anicteric Cardiovascular: regular rate and rhythm, S1/S2 present, systolic murmor Pulmonary: clear to auscultation bilaterally, no rales/rhonchi/wheezes Abdominal: soft, non-tender, non-distended, no rebound/guarding, normal bowel sounds present Musculoskeletal: normal ROM, no peripheral edema Skin: warm and dry, intact, no rashes, Neuro: CN II-XII intact, no focal deficits Objective Labs 02/10/25 05:45 02/10/25 05:45 Labs: Laboratory Results - last 24 hr 02/09/25 02/10/25 15:26 05:45 WBC 7.5 6.4 RBC 3.74 L 3.28 L Hgb 12.5 L 11.1 L Hct 35.9 L 31.2 L MCV 96 95 MCH 33.4 33.8 MCHC 34.8 35.6 RDW Std Deviation 50.5 H 48.7 H Plt Count 104 L D 76 L D Neut % (Auto) 68 75 Lymph % (Auto) 22 17 Gaines % (Auto) 5 5 Eos % (Auto) 3 2 Baso % (Auto) 1 1 Neut # (Auto) 5.1 4.8 Lymph # (Auto) 1.7 1.1 Gaines # (Auto) 0.4 0.3 Eos # (Auto) 0.2 0.1 Baso # (Auto) 0.1 0.1 Immature Gran # (Auto) 0.05 H 0.04 H Absolute Nucleated RBC 0.00 0.00 Immature Gran % 1 H 1 H Nucleated RBC % 0 0 PT 11.5 INR 1.1 APTT 30.6 Sodium 142 140 Potassium 3.4 3.6 Chloride 105 104 Carbon Dioxide 24.7 25.5 Anion Gap 12 11 BUN < 5 L < 5 L Creatinine 0.5 L 0.5 L Estim Creat Clear Calc 191.4 191.4 eGFR > 60 > 60 BUN/Creatinine Ratio 10 L 10 L Glucose [address] Glu mg/dL 97 Hemoglobin A1c 5.0 Calculated Osmolality 281 276 Calcium 9.0 9.0 Corrected Calcium 9.0 9.0 Phosphorus 4.1 Magnesium 2.1 1.4 L Total Bilirubin 4.4 H 4.3 H Direct Bilirubin 3.6 H AST 163 H 123 H ALT 45 37 Alkaline Phosphatase 194 H 157 H D Troponin I < 0.002 B-Natriuretic Peptide < 20 Total Protein 8.2 7.3 Albumin 4.7 4.0 D Globulin 3.5 3.3 Albumin/Globulin Ratio 1.3 1.2 Triglycerides 280 H Cholesterol 338 H LDL Cholesterol, Calc 252 H HDL Cholesterol 30 L Cholesterol/HDL Ratio 11.3 H TSH 1.28 Free T4 1.46 Ur Collection Type Clean Catch Urine Color Yellow Urine Clarity Hazy Urine pH 6.5 Ur Specific [place] 1.010 Urine Protein 1+ A Urine Glucose (UA) Negative Urine Ketones Negative Urine Blood Negative Urine Nitrite Negative Urine Bilirubin Negative Urine Urobilinogen (Auto) Negative Ur Leukocyte Esterase Negative Urine RBC 4 H Urine WBC 2 Ur Squamous Epith Cells 0 Urine Bacteria Rare Ur Culture Indicated? Not Indicated Urine Opiates Screen Negative Urine Fentanyl Screen Negative Ur Barbiturates Screen Negative U Amphetamin/Meth Scrn Negative U Benzodiazepines Scrn Positive A U Cocaine Metab Screen Negative U Marijuana (THC) Screen Negative Ethyl Alcohol 317.6 H Misc Test Result Platelets confirmed Quality Measures Quality Measures none Assessment & Plan Assessment Current Active Medications: Generic Name Dose Route Start Last Admin Trade Name Freq PRN Reason Stop Dose Admin Acetaminophen 650 mg 02/09/25 23:42 Acetaminophen 325 Mg Tablet PO 03/11/25 23:41 Q6H PRN PAIN (1-3) OR FEVER > 100.4 Enoxaparin Sodium 40 mg 02/10/25 09:00 Enoxaparin Sod Inj 40 Mg/0.4 Ml Syringe SC 02/24/25 08:59 QDAY ARI Folic Acid 1 mg 02/10/25 09:00 Folic Acid 1 Mg Tablet PO 03/12/25 08:59 QDAY ARI Lactated Ringer's 1,000 mls @ 75 mls/hr 02/09/25 23:45 02/10/25 00:24 Lactated Ringers IV 02/10/25 13:04 75 mls/hr .[id number] ARI Administration Magnesium Sulfate 4 gm in 50 mls @ 12.5 mls/hr 02/10/25 07:42 Magnesium Sulfate Ivpb IV 02/10/25 11:41 X1 ONE Magnesium Sulfate 4 gm in 50 mls @ 12.5 mls/hr 02/10/25 12:00 Magnesium Sulfate Ivpb IV 02/10/25 15:59 X1 ONE Lorazepam 0.5 mg 02/09/25 23:56 02/10/25 02:51 Lorazepam 0.5 Mg Tablet PO 02/14/25 23:55 0.5 mg Q2H PRN Administration CIWA 2-6 Midazolam HCl 2 mg 02/09/25 23:51 Midazolam Inj 1 Mg/Ml Vial 2 Ml IVP 02/14/25 23:50 Q2H PRN CIWA 7-11 Midazolam HCl 4 mg 02/09/25 23:54 Midazolam Inj 1 Mg/Ml Vial 2 Ml IVP 02/14/25 23:53 Q2H PRN CIWA 12-20 Ondansetron HCl 4 mg 02/09/25 23:42 Ondansetron Inj 2 Mg/Ml Inj 2 Ml IVP 03/11/25 23:41 Q6H PRN NAUSEA OR VOMITING Protocol Potassium Chloride 40 meq 02/10/25 07:41 Potassium Chloride 20 Meq Tabcr PO 02/10/25 07:42 X1 ONE Sennosides 1 tab 02/09/25 23:42 Senna Tablet PO 03/11/25 23:41 QDAY PRN constipation Protocol Thiamine HCl 100 mg 02/10/25 09:00 Thiamine 100 Mg Tablet PO 03/12/25 08:59 QDAY ARI Plan 34-year-old male with a history of heavy alcohol use presents to the ED with complaints of palpitations, shakiness, anxiety, nausea, and nonbloody vomiting. Patient admitted for alcohol withdrawal. #Alcohol intoxication #Alcohol withdrawal Patient has previous admissions for alcohol intoxication, alcohol level on admission 317.6 Last drink was 1 hour before presentation to ED CIWA at the time of ED presentation was 8, received lorazepam 1 mg IV x 1, with CIWA improvement to 4 No concern of delirium tremens at this time No hallucinations at this time Will need to continue monitoring symptoms including hallucinations, restlessness, vital sign changes including tachycardia to monitor for withdrawal 02/10 CIWA scores low 1-4 Plan: ? CIWA protocol ? CIWA 2-6 --> lorazepam 0.5 mg p.o. every 2 hours as needed ? CIWA 7-11 --> midazolam 2 mg IV every 2 hours as needed ? CIWA 12?20 --> midazolam 4 mg IV every 2 hours as needed ? Thiamine 500 mg PO x 1 followed by 100 mg PO daily ? Folic acid 1 mg PO daily ? Seizure precautions ? Aspiration precautions - Echo pending for rule out etoh cardiomyopathy- Lucien, for read, not yet taken #Acute Alcohol Hepatitis #Hyperbilirubinemia #Transaminitis DDx for hyperbilirubinemia include liver disease, hepatitis, autoimmune hepatitis, gallstones Gallbladder ultrasound 01/11 showed normal gallbladder, significant hepatomegaly, fatty infiltration no focal liver lesions Gallbladder ultrasound 02/10 showed fatty liver infiltration, suspicious for hepatic cirrhosis, normal gallbladde, and prominent pancreatic head On admission T. bili 4.4, D bili 3.6, AST 163, ALT 45, alk phos 194 AST and ALT ratio >2:1, and > 3 times upper limit of normal Maddrey Disease Score: 2.0 patient has good prognosis and will not benefit from glucocorticoids. Plan ? Monitor LFTs with a.m. labs Health Maintenance: Diet: Clear liquid diet, advance as tolerated GI prophylaxis: None DVT prophylaxis: Lovenox 40 mg SC daily Antibiotics: None CODE STATUS: Full Disposition: Telemetry Plan discussed with my attending Dr. Alarcon and my senior Dr. Kings Moscoso MD PGY1
[2025-02-10] MEDS: Magnesium Sulfate 4 GM Ivpb 4 GM/50 ML BAG IV ×2 (08:21→12:11)
[2025-02-10] MEDS: ENOXAPARIN SOD INJ 40 MG/0.4 ML SYRINGE SC (08:21)
[2025-02-10] MEDS: THIAMINE 100 MG TABLET PO (08:22)
[2025-02-10] MEDS: FOLIC ACID 1 MG TABLET PO (08:22)
--- NOTE | 2025-02-10 13:39 | PC.SS ---
Patient Griffin Mandujano is a 34 Year old male admitted for Alcohol withdrawals. SS met with patient at bedside to discuss discharge plan and verify demographic information. Patient reports he lives at home with his , Kerri Mcneil who he reports is his surrogate decision maker, [phone]. Patient reports he does not utilize any source of DME to assist with ambulation. Patient is able to complete all ADL's independently. Patient reports pharmacy of choice is [facility]. Patient does not have a PCP. SS inquired about ETOH resources, patient is open to resources. Patient reports he drinks 12 cans of Harvel Wiser a day and one bottle of Haseeb Naveed a day. Patient reports he has been drinking like that for about a month now. SS provided ETOH resources and left at bedside. At time of discharge patient will return back home. Discharge Plan: Home Next of kin: , Kerri Mcneil
--- NOTE | 2025-02-10 13:54 | ECHO_ITS ---
Patient Info Name: Griffin Mandujano Age: 34 years : 1990 Gender: Male Ht: 168 cm Wt: 67 kg BSA: 1.78 m2 BP: 137 / 85 mmHg HR: 87 bpm Exam Date: 02/12/2025 9:20 AM Admit Date: 02/09/2025 Site: [facility] Room Number: [id number] Patient Status: I Exam Type: CA echo doppler complete Master [place]: Yenifer Enriquez Ordering Physician: Alejandrina Moscoso Study Info Indications c/f etoh cardiomyopathy - Primary Location: S3NX Left Ventricular Outflow Tract Name Value Normal LVOT 2D LVOT Diameter 1.9 cm LVOT Doppler LVOT Peak Velocity 131 cm/s LVOT Mean Gradient 4 mmHg LVOT VTI 26 cm LVOT VTI/AV VTI Ratio 0.8 LVOT Stroke Volume 72 ml Pulmonic Valve Name Value Normal PV Doppler PV Peak Velocity 160 cm/s Mitral Valve Name Value Normal MV Doppler MV Decel Cannon 598 cm/s2 MV PHT 48 ms MV Area (PHT) 4.6 cm2 4.0-5.0 MV Diastolic Function MV E Peak Velocity 99 cm/s MV A Peak Velocity 66 cm/s MV E/A 1.5 MV Annular TDI MV Septal e' Velocity 10.8 cm/s MV E/e' (Septal) 9.2 MV Lateral e' Velocity 13.7 cm/s MV E/e' (Lateral) 7.2 MV e' Average 12.25 cm/s MV E/e' (Average) 8.2 Tricuspid Valve Name Value Normal TV Regurgitation Doppler TR Peak Velocity 221 cm/s Estimated PAP/RSVP RA Pressure 3 mmHg <=5 PA Systolic Pressure 23 mmHg <36 RV Systolic Pressure 23 mmHg <36 Aortic Valve Name Value Normal AV 2D/MM AV Cusp Sep (MM) 0.9 cm AV Doppler AV Peak Velocity 173 cm/s AV Mean Gradient 6 mmHg AV VTI 30 cm AV Area (Cont Eq VTI) 2.4 cm2 >=3.0 AV Area (Cont Eq Agustín) 2.1 cm2 AV DI (Agustín) 0.76 AV Regurgitation 2D LVOT Area 2.8 cm2 Ventricles Name Value Normal LV Dimensions 2D/MM IVS Diastolic Thickness (2D) 0.9 cm 0.6-1.0 LVID Diastole (2D) 5.3 cm 4.2-5.8 LVIW Diastolic Thickness (2D) 1.1 cm 0.6-1.0 LVID Systole (2D) 3.3 cm 2.5-4.0 LVOT Diameter 1.9 cm LV Mass (2D Cubed) 200.40 g 88.00-224.00 LV Mass Index (2D Cubed) 113 g/m2 49-115 Relative Wall Thickness (2D) 0.42 <=0.42 IVS/LVIW Diastolic Thickness (2D) 0.82 0.00-1.50 LV Fractional Shortening/Ejection Fraction 2D/MM LV Fractional Shortening (2D) 38 % 25-43 LV EF (2D Teichholz) 67 % Atria Name Value Normal LA Dimensions LA Volume (4C A-L) 40 ml LA Volume (BP A-L) 48 ml Left Ventricle Left ventricular chamber dimension is normal. Left ventricular systolic function is normal with visually estimated ejection fraction of 60-65%. There is normal geometry noted in the left ventricle. Left ventricular segmental wall motion is normal. There is normal diastolic function in the left ventricle. Right Ventricle Right ventricular chamber dimension is normal. Right ventricular systolic function is normal. Left Atrium Left atrial chamber dimension is mildly enlarged. Right Atrium Right atrial chamber dimension is normal. Aortic Valve The aortic valve is trileaflet. There is no aortic valve sclerosis. There is no aortic valve stenosis with a peak velocity of 173 cm/s, mean gradient of 6 mmHg, and aortic valve area of 2.4 cm2. There is no aortic valve regurgitation. Pulmonic Valve The pulmonic valve is normal. There is no pulmonic valve stenosis. There is no pulmonic regurgitation. Mitral Valve The mitral valve has normal leaflets. There is no mitral valve stenosis. There is trace mitral valve regurgitation. Tricuspid Valve The tricuspid valve leaflets are normal. There is no tricuspid valve stenosis. There is trace tricuspid valve regurgitation. No pulmonary hypertension, estimated pulmonary arterial systolic pressure is 23 mmHg and systemic blood pressure of 137 mmHg in systole. Pericardium/Pleural The pericardium appears normal. There is trivial pericardial effusion with no tamponade. No pleural effusion visualized. Inferior Vena Cava Normal inferior vena cava with >50% collapse upon inspiration consistent with normal right atrial pressure, 3 mmHg. Aorta The aortic measurements are indexed to age and body surface area. The aortic root at the sinus of Valsalva is not well visualized. The prox ascending aorta is not well visualized. Summary 1. Left ventricle size is normal and systolic function is normal. Estimated ejection fraction is 60-65%. There is normal diastolic function. 2. Right ventricle chamber size is normal and systolic function is normal. Estimated RVSP is 23 mmHg. 3. There is trace mitral valve regurgitation. 4. There is trace tricuspid valve regurgitation. 5. The left atrium is mildly enlarged. The right atrium is normal. 6. Normal IVC with estimated RA pressure 3 mmHg. 7. There is trivial pericardial effusion with no tamponade. Report Signatures Finalized by Tiffany Weller on 02/13/2025 07:47 AM
--- NOTE | 2025-02-10 14:24 | PC.SS ---
Rounding: on CIWA protocol with IV meds
[2025-02-11] VITALS (10 sets, daily range): BP systolic 120–131; BP diastolic 68–82; PULSE 73–91; RESP 16–99; TEMP 36.2–36.8; O2SAT 95–99; BMI 23.8
[2025-02-11 05:49] LABS: Basophils # (Auto) 0.1 Thou/mm3 (0.0-0.2); Basophils % (Auto) 1 % (0-2.5); Eosinophils # (Auto) 0.2 Thou/mm3 (0.0-0.5); Eosinophils % (Auto) 3 % (0-10); Hematocrit 33.3 % (41.0-53.0); Hemoglobin 11.9 g/dL (13.5-16.0); Immature Granulocytes Auto 0.04 Thou/mm3 (0.00-0.00); Lymphocytes # (Auto) 1.4 Thou/mm3 (1.0-4.8); Lymphocytes % (Auto) 17 % (10-50); Mean Corpuscular HGB Conc 35.7 g/dl (31.0-37.0); Mean Corpuscular Hemoglobin 34.3 pg (25.0-35.0); Mean Corpuscular Volume 96 fL (80-100); Monocytes # (Auto) 0.5 Thou/mm3 (0.0-0.8); Monocytes % (Auto) 6 % (0-12); Neutrophils # (Auto) 5.8 Thou/mm3 (1.8-7.7); Neutrophils % (Auto) 73 % (37-80); Nucleated Red Blood Cell # 0.00 Thou/mm3 (0.00-0.00); Nucleated Red Blood Cell % 0 /100 WBC (0); Platelet Count 88 Thou/mm3 (140-440); RDW Standard Deviation 49.0 fL (35.1-43.9); Red Blood Count 3.47 Miln/mm3 (4.50-5.90); White Blood Count 8.0 Thou/mm3 (3.8-10.6)
[2025-02-11 06:18] LABS: Anion Gap 12 (7-16); BUN/Creatinine Ratio 10 Ratio (12-20); Blood Urea Nitrogen 6 mg/dL (9-23); Carbon Dioxide 22.0 mMol/L (20.0-31.0); Chloride 104 mMol/L (98-107); Creatinine (Component) 0.6 mg/dL (0.6-1.3); Estimated Creatinine Clearance 159.5 mL/min (>60); Glucose 92 mg/dL (74-106); Potassium 3.7 mMol/L (3.4-5.1); Sodium 138 mMol/L (136-145); eGFR > 60 See Note
[2025-02-11 06:19] LABS: Alanine Aminotransferase 32 U/L (10-49); Albumin, Serum 4.3 gm/dL (3.5-5.0); Albumin/Globulin Ratio 1.2 (1.2-2.2); Alkaline Phosphatase 153 U/L (46-116); Aspartate Amino Transferase 101 U/L (0-34); Bilirubin,Total 6.1 mg/dL (0.3-1.2); Calcium 9.1 mg/dL (8.3-10.6); Calcium (Corrected) 9.1 mg/dL (8.5-10.1); Globulin 3.6 gm/dL (2.3-3.5); Magnesium 2.1 mg/dL (1.6-2.6); Osmolality,Calculated 273 (275-295); Phosphorous 4.2 mg/dL (2.4-5.1); Total Protein 7.9 gm/dL (5.7-8.2)
--- NOTE | 2025-02-11 07:30 | ESPR_ITS ---
<Statement entered by Felipe Alarcon MD - 02/20/25 08:33> I reviewed above note and agree with findings and plans. I have also personally examined the patient with medicine team and went over assessment and plan with medical team including senior insight manager international and resident physician. <Statement entered by Giovanni Ku MD - 02/11/25 16:23> Pt is seen at bedside, CIWA 0. Pt is reeducated on the importance of complete abstinence from alcohol. Echo cardiogram is pending due to a systolic murmur audible on auscultation. Patient was seen and examined by me personally. I have directly supervised and reviewed documentation by the team resident and agree with its findings. ------- Plan of care was discussed with the attending, Dr. Agnes Ku, PGY-2 Documentation for date of: 02/11/25 Subjective Subjective Interval history: NAEO. CIWA 0. VSS. Patient denies N/V, abdominal pain, diarrhea, constipation. No new concerns at this time. Exam Vital Signs Temp Pulse Resp BP Pulse Ox O2 Del Method 97.4 F 77 16 120/72 96 Room Air 02/11/25 04:00 02/11/25 04:00 02/11/25 04:00 02/11/25 04:00 02/11/25 04:00 02/11/25 04:00 Narrative Exam General: No acute distress, well nourished Eye: PERRL, EOMI, normal conjunctiva, no scleral icterus HENT: Normocephalic, atraumatic, normal hearing, moist oral mucosa Neck: Supple, non-tender, no JVD, no lymphadenopathy Lungs: Clear to auscultation bilaterally, non-labored respirations, symmetric chest rise, no use of accessory muscles Heart: Normal S1 and S2, no S3 or S4 appreciated. Systolic murmur Abdomen: Soft, non-tender, non-distended, normal bowel sounds. No guarding or rebound tenderness. Musculoskeletal: Normal range of motion and strength, no tenderness or swelling Skin: Skin is warm, dry, no rashes or lesions. Neurologic: Alert, awake and oriented x3. CN II-XII grossly intact. No focal neuro deficits. No signs of meningeal irritation noted. Psychiatric: Cooperative, appropriate mood and affect Objective Labs 02/11/25 05:08 02/11/25 05:08 Labs: Laboratory Results - last 24 hr 02/11/25 05:08 WBC 8.0 RBC 3.47 L Hgb 11.9 L Hct 33.3 L MCV 96 MCH 34.3 MCHC 35.7 RDW Std Deviation 49.0 H Plt Count 88 L Neut % (Auto) 73 Lymph % (Auto) 17 [place] % (Auto) 6 Eos % (Auto) 3 Baso % (Auto) 1 Neut # (Auto) 5.8 Lymph # (Auto) 1.4 [place] # (Auto) 0.5 Eos # (Auto) 0.2 Baso # (Auto) 0.1 Immature Gran # (Auto) 0.04 H Absolute Nucleated RBC 0.00 Immature Gran % 1 H Nucleated RBC % 0 Sodium 138 Potassium 3.7 Chloride 104 Carbon Dioxide 22.0 Anion Gap 12 BUN 6 L Creatinine 0.6 Estim Creat Clear Calc 159.5 eGFR > 60 BUN/Creatinine Ratio 10 L Glucose 92 Calculated Osmolality 273 L Calcium 9.1 Corrected Calcium 9.1 Phosphorus 4.2 Magnesium 2.1 Total Bilirubin 6.1 H D AST 101 H ALT 32 Alkaline Phosphatase 153 H Total Protein 7.9 Albumin 4.3 Globulin 3.6 H Albumin/Globulin Ratio 1.2 Quality Measures Quality Measures VTE prophylaxis Assessment & Plan Assessment Current Active Medications: Generic Name Dose Route Start Last Admin Trade Name Freq PRN Reason Stop Dose Admin Acetaminophen 650 mg 02/09/25 23:42 Acetaminophen 325 Mg Tablet PO 03/11/25 23:41 Q6H PRN PAIN (1-3) OR FEVER > 100.4 Enoxaparin Sodium 40 mg 02/10/25 09:00 02/10/25 08:21 Enoxaparin Sod Inj 40 Mg/0.4 Ml Syringe SC 02/24/25 08:59 40 mg QDAY ARI Administration Folic Acid 1 mg 02/10/25 09:00 02/10/25 08:22 Folic Acid 1 Mg Tablet PO 03/12/25 08:59 1 mg QDAY ARI Administration Lorazepam 0.5 mg 02/09/25 23:56 02/10/25 21:15 Lorazepam 0.5 Mg Tablet PO 02/14/25 23:55 0.5 mg Q2H PRN Administration CIWA 2-6 Midazolam HCl 2 mg 02/09/25 23:51 Midazolam Inj 1 Mg/Ml Vial 2 Ml IVP 02/14/25 23:50 Q2H PRN CIWA 7-11 Midazolam HCl 4 mg 02/09/25 23:54 Midazolam Inj 1 Mg/Ml Vial 2 Ml IVP 02/14/25 23:53 Q2H PRN CIWA 12-20 Ondansetron HCl 4 mg 02/09/25 23:42 Ondansetron Inj 2 Mg/Ml Inj 2 Ml IVP 03/11/25 23:41 Q6H PRN NAUSEA OR VOMITING Protocol Sennosides 1 tab 02/09/25 23:42 Senna Tablet PO 03/11/25 23:41 QDAY PRN constipation Protocol Thiamine HCl 100 mg 02/10/25 09:00 02/10/25 08:22 Thiamine 100 Mg Tablet PO 03/12/25 08:59 100 mg QDAY ARI Administration Plan 34-year-old male with a history of heavy alcohol use presents to the ED with complaints of palpitations, shakiness, anxiety, nausea, and nonbloody vomiting. Patient admitted for alcohol withdrawal. #Alcohol intoxication - resolved #Alcohol withdrawal Patient has previous admissions for alcohol intoxication, alcohol level on admission 317.6 Last drink was 1 hour before presentation to ED CIWA at the time of ED presentation was 8, received lorazepam 1 mg IV x 1, with CIWA improvement to 4 No concern of delirium tremens at this time No hallucinations at this time Will need to continue monitoring symptoms including hallucinations, restlessness, vital sign changes including tachycardia to monitor for withdrawal 02/10 CIWA scores low 1-4 Plan: ? CIWA protocol ? CIWA 2-6 --> lorazepam 0.5 mg p.o. every 2 hours as needed ? CIWA 7-11 --> midazolam 2 mg IV every 2 hours as needed ? CIWA 12?20 --> midazolam 4 mg IV every 2 hours as needed ? Thiamine 500 mg PO x 1 followed by 100 mg PO daily ? Folic acid 1 mg PO daily ? Seizure precautions ? Aspiration precautions - Echo pending for rule out etoh cardiomyopathy- Lucien, for read, not yet taken #Acute Alcohol Hepatitis #Hyperbilirubinemia #Transaminitis DDx for hyperbilirubinemia include liver disease, hepatitis, autoimmune hepatitis, gallstones Gallbladder ultrasound 01/11 showed normal gallbladder, significant hepatomegaly, fatty infiltration no focal liver lesions Gallbladder ultrasound 02/10 showed fatty liver infiltration, suspicious for hepatic cirrhosis, normal gallbladde, and prominent pancreatic head On admission T. bili 4.4, D bili 3.6, AST 163, ALT 45, alk phos 194 AST and ALT ratio >2:1, and > 3 times upper limit of normal Maddrey Disease Score: 2.0 patient has good prognosis and will not benefit from glucocorticoids. Elevated Tbili 6.1 on 01/11 Plan ? Monitor LFTs with a.m. labs Health Maintenance: Diet: Regular GI prophylaxis: None DVT prophylaxis: Lovenox 40 mg SC daily Antibiotics: None CODE STATUS: Full Disposition: Telemetry Plan discussed with my attending Dr. Alarcon and my senior Dr. Kings Hudson MD PGY1
[2025-02-11] MEDS: THIAMINE 100 MG TABLET PO (09:41)
[2025-02-11] MEDS: FOLIC ACID 1 MG TABLET PO (09:41)
[2025-02-11] MEDS: ENOXAPARIN SOD INJ 40 MG/0.4 ML SYRINGE SC (09:41)
--- NOTE | 2025-02-11 16:42 | PC.SS ---
Discharge round: Pending ECO. CRISTOBAL mireles. D/c home.
[2025-02-11 20:12] LABS: Hepatitis A Antibody IgM Non Reactive (Non React); Hepatitis B Core Antibody IgM Non Reactive (Non React); Hepatitis B Surface Antigen Non Reactive (Non React); Hepatitis C Antibody Non Reactive (Non React)
[2025-02-12] VITALS (8 sets, daily range): BP systolic 121–154; BP diastolic 69–85; PULSE 79–130; RESP 16–98; TEMP 36.3–36.8; O2SAT 96–99
--- NOTE | 2025-02-12 08:18 | PD.RESPRO ---
Documentation for date of: 02/12/25 Exam Vital Signs Temp Pulse Resp BP Pulse Ox O2 Del Method 98.0 F 87 20 137/85 H 98 Room Air 02/12/25 04:00 02/12/25 07:10 02/12/25 07:10 02/12/25 04:00 02/12/25 04:00 02/12/25 04:00 Narrative Exam General: No acute distress, well nourished Eye: PERRL, EOMI, normal conjunctiva, no scleral icterus HENT: Normocephalic, atraumatic, normal hearing, moist oral mucosa Neck: Supple, non-tender, no JVD, no lymphadenopathy Lungs: Clear to auscultation bilaterally, non-labored respirations, symmetric chest rise, no use of accessory muscles Heart: Normal S1 and S2, no S3 or S4 appreciated. Systolic murmur Abdomen: Soft, non-tender, non-distended, normal bowel sounds. No guarding or rebound tenderness. Musculoskeletal: Normal range of motion and strength, no tenderness or swelling Skin: Skin is warm, dry, no rashes or lesions. Neurologic: Alert, awake and oriented x3. CN II-XII grossly intact. No focal neuro deficits. No signs of meningeal irritation noted. Psychiatric: Cooperative, appropriate mood and affect Objective Labs 02/11/25 05:08 02/11/25 05:08 Labs: Laboratory Results - last 24 hr 02/10/25 05:45 Hepatitis A IgM Ab Non Reactive Hep Bs Antigen Non Reactive Hep B Core IgM Ab Non Reactive Hepatitis C Antibody Non Reactive Quality Measures Quality Measures VTE prophylaxis Assessment & Plan Assessment Current Active Medications: Generic Name Dose Route Start Last Admin Trade Name Shahla PRN Reason Stop Dose Admin Acetaminophen 650 mg 02/09/25 23:42 Acetaminophen 325 Mg Tablet PO 03/11/25 23:41 Q6H PRN PAIN (1-3) OR FEVER > 100.4 Enoxaparin Sodium 40 mg 02/10/25 09:00 02/11/25 09:41 Enoxaparin Sod Inj 40 Mg/0.4 Ml Syringe SC 02/24/25 08:59 40 mg QDAY ARI Administration Folic Acid 1 mg 02/10/25 09:00 02/11/25 09:41 Folic Acid 1 Mg Tablet PO 03/12/25 08:59 1 mg QDAY ARI Administration Lorazepam 0.5 mg 02/09/25 23:56 02/10/25 21:15 Lorazepam 0.5 Mg Tablet PO 02/14/25 23:55 0.5 mg Q2H PRN Administration CIWA 2-6 Midazolam HCl 2 mg 02/09/25 23:51 Midazolam Inj 1 Mg/Ml Vial 2 Ml IVP 02/14/25 23:50 Q2H PRN CIWA 7-11 Midazolam HCl 4 mg 02/09/25 23:54 Midazolam Inj 1 Mg/Ml Vial 2 Ml IVP 02/14/25 23:53 Q2H PRN CIWA 12-20 Ondansetron HCl 4 mg 02/09/25 23:42 Ondansetron Inj 2 Mg/Ml Inj 2 Ml IVP 03/11/25 23:41 Q6H PRN NAUSEA OR VOMITING Protocol Sennosides 1 tab 02/09/25 23:42 Senna Tablet PO 03/11/25 23:41 QDAY PRN constipation Protocol Thiamine HCl 100 mg 02/10/25 09:00 02/11/25 09:41 Thiamine 100 Mg Tablet PO 03/12/25 08:59 100 mg QDAY ARI Administration Plan 34-year-old male with a history of heavy alcohol use presents to the ED with complaints of palpitations, shakiness, anxiety, nausea, and nonbloody vomiting. Patient admitted for alcohol withdrawal. #Alcohol intoxication - resolved #Alcohol withdrawal Patient has previous admissions for alcohol intoxication, alcohol level on admission 317.6 Last drink was 1 hour before presentation to ED CIWA at the time of ED presentation was 8, received lorazepam 1 mg IV x 1, with CIWA improvement to 4 No concern of delirium tremens at this time No hallucinations at this time Will need to continue monitoring symptoms including hallucinations, restlessness, vital sign changes including tachycardia to monitor for withdrawal 02/10 CIWA scores low 1-4 Plan: ? CIWA protocol ? CIWA 2-6 --> lorazepam 0.5 mg p.o. every 2 hours as needed ? CIWA 7-11 --> midazolam 2 mg IV every 2 hours as needed ? CIWA 12?20 --> midazolam 4 mg IV every 2 hours as needed ? Thiamine 500 mg PO x 1 followed by 100 mg PO daily ? Folic acid 1 mg PO daily ? Seizure precautions ? Aspiration precautions - Echo pending for rule out etoh cardiomyopathy- Thaypran, for read, not yet taken #Acute Alcohol Hepatitis #Hyperbilirubinemia #Transaminitis DDx for hyperbilirubinemia include liver disease, hepatitis, autoimmune hepatitis, gallstones Gallbladder ultrasound 01/11 showed normal gallbladder, significant hepatomegaly, fatty infiltration no focal liver lesions Gallbladder ultrasound 02/10 showed fatty liver infiltration, suspicious for hepatic cirrhosis, normal gallbladde, and prominent pancreatic head On admission T. bili 4.4, D bili 3.6, AST 163, ALT 45, alk phos 194 AST and ALT ratio >2:1, and > 3 times upper limit of normal Maddrey Disease Score: 2.0 patient has good prognosis and will not benefit from glucocorticoids. Elevated Tbili 6.1 on 01/11 Plan ? Monitor LFTs with a.m. labs Health Maintenance: Diet: Regular GI prophylaxis: None DVT prophylaxis: Lovenox 40 mg SC daily Antibiotics: None CODE STATUS: Full Disposition: Telemetry Plan discussed with my attending Dr. Alarcon and my senior Dr. Kings Hudson MD PGY1
[2025-02-12] MEDS: FOLIC ACID 1 MG TABLET PO (09:09)
[2025-02-12] MEDS: THIAMINE 100 MG TABLET PO (09:09)
[2025-02-12 10:27] LABS: Basophils # (Auto) 0.1 Thou/mm3 (0.0-0.2); Basophils % (Auto) 1 % (0-2.5); Eosinophils # (Auto) 0.3 Thou/mm3 (0.0-0.5); Eosinophils % (Auto) 3 % (0-10); Hematocrit 32.7 % (41.0-53.0); Hemoglobin 11.7 g/dL (13.5-16.0); Immature Granulocytes Auto 0.04 Thou/mm3 (0.00-0.00); Lymphocytes # (Auto) 1.4 Thou/mm3 (1.0-4.8); Lymphocytes % (Auto) 16 % (10-50); Mean Corpuscular HGB Conc 35.8 g/dl (31.0-37.0); Mean Corpuscular Hemoglobin 34.5 pg (25.0-35.0); Mean Corpuscular Volume 97 fL (80-100); Monocytes # (Auto) 0.6 Thou/mm3 (0.0-0.8); Monocytes % (Auto) 7 % (0-12); Neutrophils # (Auto) 6.4 Thou/mm3 (1.8-7.7); Neutrophils % (Auto) 73 % (37-80); Nucleated Red Blood Cell # 0.00 Thou/mm3 (0.00-0.00); Nucleated Red Blood Cell % 0 /100 WBC (0); Platelet Count 88 Thou/mm3 (140-440); RDW Standard Deviation 49.5 fL (35.1-43.9); Red Blood Count 3.39 Miln/mm3 (4.50-5.90); White Blood Count 8.9 Thou/mm3 (3.8-10.6)
[2025-02-12 10:48] LABS: Alanine Aminotransferase 30 U/L (10-49); Albumin, Serum 4.5 gm/dL (3.5-5.0); Albumin/Globulin Ratio 1.3 (1.2-2.2); Alkaline Phosphatase 150 U/L (46-116); Anion Gap 11 (7-16); Aspartate Amino Transferase 84 U/L (0-34); BUN/Creatinine Ratio 18 Ratio (12-20); Bilirubin,Total 4.9 mg/dL (0.3-1.2); Blood Urea Nitrogen 11 mg/dL (9-23); Calcium 9.7 mg/dL (8.3-10.6); Calcium (Corrected) 9.7 mg/dL (8.5-10.1); Carbon Dioxide 23.3 mMol/L (20.0-31.0); Chloride 106 mMol/L (98-107); Creatinine (Component) 0.6 mg/dL (0.6-1.3); Estimated Creatinine Clearance 159.5 mL/min (>60); Globulin 3.4 gm/dL (2.3-3.5); Glucose 110 mg/dL (74-106); Magnesium 1.8 mg/dL (1.6-2.6); Osmolality,Calculated 279 (275-295); Phosphorous 3.5 mg/dL (2.4-5.1); Potassium 3.6 mMol/L (3.4-5.1); Sodium 140 mMol/L (136-145); Total Protein 7.9 gm/dL (5.7-8.2); eGFR > 60 See Note
--- NOTE | 2025-02-12 10:48 | PD.RESDS ---
Planned Discharge Date 02/12/25 DS: Providers Provider Date of admission: 02/09/25 23:42 Primary care physician: Physician No Primary/Family Admitting Provider: Elayne Recinos MD Attending Provider on Admission: Elayne Recinos MD Attending Provider on DC: Dr. Felipe Alarcon Discharging Provider: Saundra Hudson MD Hospital Course Time Spent with Patient Time attestation: Total time spent providing and/or coordinating discharge services: Exam Vital Signs Temp Pulse Resp BP Pulse Ox O2 Del Method 97.7 F 85 18 139/82 H 97 Room Air 02/12/25 08:00 02/12/25 08:00 02/12/25 08:00 02/12/25 08:00 02/12/25 08:00 02/12/25 04:00 Discharge Plan Prescriptions/Referrals Prescriptions/Med Rec: New metoprolol tartrate 25 mg tablet 12.5 mg PO BID 10 Days Qty: 10 0RF chlordiazepoxide HCl 25 mg capsule 25 mg PO TID MDD 4 tab PRN (Reason: alcohol withdrawal) Qty: 30 0RF Rx Instructions: 1 tablet QID for 3 days then 1 tablet for TID for 3 days then 1 tablet BID for 3 days then 1 tab daily for 3 days then STOP No Action chlordiazepoxide HCl 25 mg capsule 25 mg PO Q6H MDD 4 Qty: 30 0RF Referrals: No Primary/Family,Physician [Primary Care Provider] Patient/Caregiver Discharge Instructions Discharge Activity: activity as tolerated Other Discharge Activity Instructions:: Follow-up with primary care for referral to outpatient/inpatient detox services. Print Language: [place]an
--- NOTE | 2025-02-12 11:43 | PC.NURSE ---
Patient CIWA increasing, refusing medications. Seems convinced the staff intend to call immigration services. Assured patient that is not the case, but still refusing any medication.
--- NOTE | 2025-02-12 11:45 | ESPR_ITS ---
<Statement entered by Felipe Alarcon MD - 02/20/25 08:39> I reviewed above note and agree with findings and plans. I have also personally examined the patient with medicine team and went over assessment and plan with medical team including intern architect and resident physician. <Statement entered by Giovanni Ku MD - 02/12/25 15:07> Pt is see at bedside, pt is tremulous and tachycardic as well as anxious. will continue CIWA protocol and continue to monitor today. Although pt does not want to take any medications and refused ativan and versed. Patient was seen and examined by me personally. I have directly supervised and reviewed documentation by the team resident and agree with its findings. ------- Plan of care was discussed with the attending, Dr. Agnes Ku, PGY-2 Documentation for date of: 02/12/25 Subjective Subjective Interval history: NAEO. Tachycardic to 120s, tremulous in b/l UE, anxious. Exam Vital Signs Temp Pulse Resp BP Pulse Ox O2 Del Method 97.7 F 85 18 139/82 H 97 Room Air 02/12/25 08:00 02/12/25 08:00 02/12/25 08:00 02/12/25 08:00 02/12/25 08:00 02/12/25 04:00 Narrative Exam General: No acute distress, well nourished Eye: PERRL, EOMI, normal conjunctiva, no scleral icterus HENT: Normocephalic, atraumatic, normal hearing, moist oral mucosa Neck: Supple, non-tender, no JVD, no lymphadenopathy Lungs: Clear to auscultation bilaterally, non-labored respirations, symmetric chest rise, no use of accessory muscles Heart: Normal S1 and S2, no S3 or S4 appreciated. Systolic murmur Abdomen: Soft, non-tender, non-distended, normal bowel sounds. No guarding or rebound tenderness. Musculoskeletal: Normal range of motion and strength, no tenderness or swelling Skin: Skin is warm, dry, no rashes or lesions. Neurologic: Alert, awake and oriented x3. CN II-XII grossly intact. No focal neuro deficits. No signs of meningeal irritation noted. Psychiatric: Cooperative, appropriate mood and affect CIWA: Nausea/vomitin Tremor: 3 Paroxysmal sweats: 2 Anxiety: 3 Agitation: 2 Tactile disturbance: 0 Auditory disturbance: 0 Visual disturbance: 0 Headache/fullness in head: 0 Orientation/clouding of sensorium: 0 Total: 10 Objective Labs 02/12/25 10:00 02/12/25 10:00 Labs: Laboratory Results - last 24 hr 02/10/25 02/12/25 05:45 10:00 WBC 8.9 RBC 3.39 L Hgb 11.7 L Hct 32.7 L MCV 97 MCH 34.5 MCHC 35.8 RDW Std Deviation 49.5 H Plt Count 88 L Neut % (Auto) 73 Lymph % (Auto) 16 [place] % (Auto) 7 Eos % (Auto) 3 Baso % (Auto) 1 Neut # (Auto) 6.4 Lymph # (Auto) 1.4 [place] # (Auto) 0.6 Eos # (Auto) 0.3 Baso # (Auto) 0.1 Immature Gran # (Auto) 0.04 H Absolute Nucleated RBC 0.00 Immature Gran % 1 H Nucleated RBC % 0 Sodium 140 Potassium 3.6 Chloride 106 Carbon Dioxide 23.3 Anion Gap 11 BUN 11 Creatinine 0.6 Estim Creat Clear Calc 159.5 eGFR > 60 BUN/Creatinine Ratio 18 Glucose 110 H Calculated Osmolality 279 Calcium 9.7 Corrected Calcium 9.7 Phosphorus 3.5 Magnesium 1.8 Total Bilirubin 4.9 H D AST 84 H ALT 30 Alkaline Phosphatase 150 H Total Protein 7.9 Albumin 4.5 Globulin 3.4 Albumin/Globulin Ratio 1.3 Hepatitis A IgM Ab Non Reactive Hep Bs Antigen Non Reactive Hep B Core IgM Ab Non Reactive Hepatitis C Antibody Non Reactive Quality Measures Quality Measures VTE prophylaxis Assessment & Plan Assessment Current Active Medications: Generic Name Dose Route Start Last Admin Trade Name Chavoq PRN Reason Stop Dose Admin Acetaminophen 650 mg 02/09/25 23:42 Acetaminophen 325 Mg Tablet PO 03/11/25 23:41 Q6H PRN PAIN (1-3) OR FEVER > 100.4 Enoxaparin Sodium 40 mg 02/10/25 09:00 02/12/25 09:12 Enoxaparin Sod Inj 40 Mg/0.4 Ml Syringe SC 02/24/25 08:59 Not Given QDAY ARI Folic Acid 1 mg 02/10/25 09:00 02/12/25 09:09 Folic Acid 1 Mg Tablet PO 03/12/25 08:59 1 mg QDAY ARI Administration Lorazepam 0.5 mg 02/09/25 23:56 02/10/25 21:15 Lorazepam 0.5 Mg Tablet PO 02/14/25 23:55 0.5 mg Q2H PRN Administration CIWA 2-6 Midazolam HCl 2 mg 02/09/25 23:51 Midazolam Inj 1 Mg/Ml Vial 2 Ml IVP 02/14/25 23:50 Q2H PRN CIWA 7-11 Midazolam HCl 4 mg 02/09/25 23:54 Midazolam Inj 1 Mg/Ml Vial 2 Ml IVP 02/14/25 23:53 Q2H PRN CIWA 12-20 Ondansetron HCl 4 mg 02/09/25 23:42 Ondansetron Inj 2 Mg/Ml Inj 2 Ml IVP 03/11/25 23:41 Q6H PRN NAUSEA OR VOMITING Protocol Sennosides 1 tab 02/09/25 23:42 Senna Tablet PO 03/11/25 23:41 QDAY PRN constipation Protocol Thiamine HCl 100 mg 02/10/25 09:00 02/12/25 09:09 Thiamine 100 Mg Tablet PO 03/12/25 08:59 100 mg QDAY ARI Administration Plan 34-year-old male with a history of heavy alcohol use presents to the ED with complaints of palpitations, shakiness, anxiety, nausea, and nonbloody vomiting. Patient admitted for alcohol withdrawal. #Alcohol intoxication - resolved #Alcohol withdrawal Patient has previous admissions for alcohol intoxication, alcohol level on admission 317.6 Last drink was 1 hour before presentation to ED CIWA at the time of ED presentation was 8, received lorazepam 1 mg IV x 1, with CIWA improvement to 4. Now CIWA 10 Will need to continue monitoring symptoms including hallucinations, restlessness, vital sign changes including tachycardia to monitor for withdrawal 02/10 CIWA scores low 1-4 Plan: ? CIWA protocol ? CIWA 2-6 --> lorazepam 0.5 mg p.o. every 2 hours as needed ? CIWA 7-11 --> midazolam 2 mg IV every 2 hours as needed ? CIWA 12?20 --> midazolam 4 mg IV every 2 hours as needed ? Thiamine 500 mg PO x 1 followed by 100 mg PO daily ? Folic acid 1 mg PO daily ? Seizure precautions ? Aspiration precautions - Echo pending for rule out etoh cardiomyopathy- Lucien, for read, not yet taken #Acute Alcohol Hepatitis #Hyperbilirubinemia - downtrending #Transaminitis On admission T. bili 4.4, D bili 3.6, AST 163, ALT 45, alk phos 194 AST and ALT ratio >2:1, and > 3 times upper limit of normal Elevated Tbili 6.1 on 01/11 --> 4.9 02/12 Gallbladder ultrasound 01/11 showed normal gallbladder, significant hepatomegaly, fatty infiltration no focal liver lesions Gallbladder ultrasound 02/10 showed fatty liver infiltration, suspicious for hepatic cirrhosis, normal gallbladde, and prominent pancreatic head Maddrey Disease Score: 2.0 patient has good prognosis and will not benefit from glucocorticoids. Plan ? Monitor LFTs with a.m. labs Health Maintenance: Diet: Regular GI prophylaxis: None DVT prophylaxis: Lovenox 40 mg SC daily Antibiotics: None CODE STATUS: Full Disposition: Telemetry Plan discussed with my attending Dr. Alarcon and my senior Dr. Kings Hudson MD PGY1
--- NOTE | 2025-02-12 11:50 | PC.SS ---
Follow up note: SS spoke to floor nurse and patient's d/c will be held due to him still going through withdrawals. Patient will need UBER at the time of discharge.
--- NOTE | 2025-02-12 12:10 | PC.NURSE ---
Patient HR elevated, bouncing leg, sitting at edge of bed, fidgeting. Asked pt. if he would take medicine now. Patient said no he's waiting for his .
[2025-02-12] MEDS: MIDAZOLAM INJ 1 MG/ML VIAL 2 ML 2 MG IVP ×2 (12:39→23:22)
--- NOTE | 2025-02-12 12:45 | PC.NURSE ---
Patients here to see pt, convinced patient to take ordered medication. Administered per CRISTOBAL.
[2025-02-13] VITALS: BP 116/67; PULSE 72; PULSE 81; RESP 18; TEMP 36.7; O2SAT 98
[2025-02-13 04:00] VITALS: BP 123/78; PULSE 79; PULSE 84; RESP 16; TEMP 36.7; O2SAT 98
[2025-02-13 06:17] VITALS: PULSE 72; RESP 18; RESP 98
--- NOTE | 2025-02-13 07:49 | PD.RESPRO ---
Documentation for date of: 02/13/25 Exam Vital Signs Temp Pulse Resp BP Pulse Ox O2 Del Method 98.1 F 72 18 123/78 98 Room Air 02/13/25 04:00 02/13/25 06:17 02/13/25 06:17 02/13/25 04:00 02/13/25 04:00 02/13/25 04:00 Objective Labs 02/12/25 10:00 02/12/25 10:00 Labs: Laboratory Results - last 24 hr 02/12/25 10:00 WBC 8.9 RBC 3.39 L Hgb 11.7 L Hct 32.7 L MCV 97 MCH 34.5 MCHC 35.8 RDW Std Deviation 49.5 H Plt Count 88 L Neut % (Auto) 73 Lymph % (Auto) 16 Nobles % (Auto) 7 Eos % (Auto) 3 Baso % (Auto) 1 Neut # (Auto) 6.4 Lymph # (Auto) 1.4 Nobles # (Auto) 0.6 Eos # (Auto) 0.3 Baso # (Auto) 0.1 Immature Gran # (Auto) 0.04 H Absolute Nucleated RBC 0.00 Immature Gran % 1 H Nucleated RBC % 0 Sodium 140 Potassium 3.6 Chloride 106 Carbon Dioxide 23.3 Anion Gap 11 BUN 11 Creatinine 0.6 Estim Creat Clear Calc 159.5 eGFR > 60 BUN/Creatinine Ratio 18 Glucose 110 H Calculated Osmolality 279 Calcium 9.7 Corrected Calcium 9.7 Phosphorus 3.5 Magnesium 1.8 Total Bilirubin 4.9 H D AST 84 H ALT 30 Alkaline Phosphatase 150 H Total Protein 7.9 Albumin 4.5 Globulin 3.4 Albumin/Globulin Ratio 1.3 Quality Measures Quality Measures VTE prophylaxis Assessment & Plan Assessment Current Active Medications: Generic Name Dose Route Start Last Admin Trade Name Freq PRN Reason Stop Dose Admin Acetaminophen 650 mg 02/09/25 23:42 Acetaminophen 325 Mg Tablet PO 03/11/25 23:41 Q6H PRN PAIN (1-3) OR FEVER > 100.4 Enoxaparin Sodium 40 mg 02/10/25 09:00 02/12/25 09:12 Enoxaparin Sod Inj 40 Mg/0.4 Ml Syringe SC 02/24/25 08:59 Not Given QDAY [facility] Folic Acid 1 mg 02/10/25 09:00 02/12/25 09:09 Folic Acid 1 Mg Tablet PO 03/12/25 08:59 1 mg QDAY ARI Administration Lorazepam 0.5 mg 02/09/25 23:56 02/13/25 07:47 Lorazepam 0.5 Mg Tablet PO 02/14/25 23:55 0.5 mg Q2H PRN Administration CIWA 2-6 Midazolam HCl 2 mg 02/09/25 23:51 02/12/25 23:22 Midazolam Inj 1 Mg/Ml Vial 2 Ml IVP 02/14/25 23:50 2 mg Q2H PRN Administration CIWA 7-11 Midazolam HCl 4 mg 02/09/25 23:54 Midazolam Inj 1 Mg/Ml Vial 2 Ml IVP 02/14/25 23:53 Q2H PRN CIWA 12-20 Ondansetron HCl 4 mg 02/09/25 23:42 Ondansetron Inj 2 Mg/Ml Inj 2 Ml IVP 03/11/25 23:41 Q6H PRN NAUSEA OR VOMITING Protocol Sennosides 1 tab 02/09/25 23:42 Senna Tablet PO 03/11/25 23:41 QDAY PRN constipation Protocol Thiamine HCl 100 mg 02/10/25 09:00 02/12/25 09:09 Thiamine 100 Mg Tablet PO 03/12/25 08:59 100 mg QDAY ARI Administration
[2025-02-13 08:00] VITALS: BP 137/83; PULSE 79; PULSE 93; RESP 18; TEMP 36.4; O2SAT 99
[2025-02-13] MEDS: FOLIC ACID 1 MG TABLET PO (08:01)
[2025-02-13] MEDS: THIAMINE 100 MG TABLET PO (08:01)
[2025-02-13 08:42] LABS: Basophils # (Auto) 0.1 Thou/mm3 (0.0-0.2); Basophils % (Auto) 1 % (0-2.5); Eosinophils # (Auto) 0.4 Thou/mm3 (0.0-0.5); Eosinophils % (Auto) 4 % (0-10); Hematocrit 37.9 % (41.0-53.0); Hemoglobin 13.4 g/dL (13.5-16.0); Immature Granulocytes Auto 0.05 Thou/mm3 (0.00-0.00); Lymphocytes # (Auto) 2.1 Thou/mm3 (1.0-4.8); Lymphocytes % (Auto) 22 % (10-50); Mean Corpuscular HGB Conc 35.4 g/dl (31.0-37.0); Mean Corpuscular Hemoglobin 35.0 pg (25.0-35.0); Mean Corpuscular Volume 99 fL (80-100); Monocytes # (Auto) 0.7 Thou/mm3 (0.0-0.8); Monocytes % (Auto) 7 % (0-12); Neutrophils # (Auto) 6.4 Thou/mm3 (1.8-7.7); Neutrophils % (Auto) 66 % (37-80); Nucleated Red Blood Cell # 0.00 Thou/mm3 (0.00-0.00); Nucleated Red Blood Cell % 0 /100 WBC (0); Platelet Count 108 Thou/mm3 (140-440); RDW Standard Deviation 51.0 fL (35.1-43.9); Red Blood Count 3.83 Miln/mm3 (4.50-5.90); White Blood Count 9.7 Thou/mm3 (3.8-10.6)
[2025-02-13 09:07] LABS: Alanine Aminotransferase 36 U/L (10-49); Albumin, Serum 5.0 gm/dL (3.5-5.0); Albumin/Globulin Ratio 1.3 (1.2-2.2); Anion Gap 12 (7-16); Aspartate Amino Transferase 86 U/L (0-34); BUN/Creatinine Ratio 13 Ratio (12-20); Bilirubin,Total 5.3 mg/dL (0.3-1.2); Blood Urea Nitrogen 8 mg/dL (9-23); Calcium 10.5 mg/dL (8.3-10.6); Calcium (Corrected) 10.5 mg/dL (8.5-10.1); Carbon Dioxide 23.0 mMol/L (20.0-31.0); Chloride 105 mMol/L (98-107); Creatinine (Component) 0.6 mg/dL (0.6-1.3); Estimated Creatinine Clearance 159.5 mL/min (>60); Globulin 3.8 gm/dL (2.3-3.5); Glucose 105 mg/dL (74-106); Magnesium 1.7 mg/dL (1.6-2.6); Osmolality,Calculated 277 (275-295); Phosphorous 4.2 mg/dL (2.4-5.1); Potassium 3.8 mMol/L (3.4-5.1); Sodium 140 mMol/L (136-145); Total Protein 8.8 gm/dL (5.7-8.2); eGFR > 60 See Note
[2025-02-13 09:24] LABS: Alkaline Phosphatase 158 U/L (46-116)
--- NOTE | 2025-02-13 10:58 | PD.RESDS ---
Planned Discharge Date 02/13/25 DS: Providers Provider Date of admission: 02/09/25 23:42 Primary care physician: Physician No Primary/Family Admitting Provider: Elayne Recinos MD Attending Provider on Admission: Art Olmedo MD Attending Provider on DC: Art Goldberg MD Discharging Provider: Art Olmedo MD DS: Diagnosis Problem List Completed Was Problem List Reviewed/Reconciled?: Yes Hospital Course Hospital Course Hospital course: Hospital Course Mr Mandujano is a 34-year-old gentleman with a history of heavy alcohol (12 pack of beer and bottle of tequila per day) use who presented to the ED with complaints of palpitations, shakiness, anxiety, nausea, and nonbloody vomiting. Patient was admitted for alcohol withdrawal. He was managed in patient with ciwa protocol with versed, and had CIWA scores raging from 1-11. His labs also demonstrated acute alcohol hepatitis, but his maddrey score was <32 so steroids were not indicated at this time. On physical exam he was noted to have a systolic ejection murmur and given patient's history of heavy etoh use use, echocardiogram was performed which demonstrated EF 60-65%. Patient was counseled on alcohol cessation. Patient was hemodynamically stable, labs were reviewed, pain was well controlled, patient denies any shortness of breath and is saturating >94% on RA, is able to ambulate per his baseline without assistance deemed stable and medically cleared for discharge. Diagnoses Alcohol use disorder Alcohol withdrawal Acute Alcohol Hepatitis Hyperbilirubinemia Transaminitis Discharge instructions -We recommend that you stop drinking. -please take the folic acid and thiamine vitamins daily -Follow up with PCP within 1 week of discharge, if you do not have a primary care physician you can come see us at the [facility] by calling [phone] -Continue rest of medications as previously prescribed -Return to the ED or call EMS if symptoms return and/or worsen Plan discussed with my attending Dr. Olmedo and my senior Dr. Kings Moscoso MD PGY1 Time Spent with Patient Time attestation: Total time spent providing and/or coordinating discharge services: 36 minutes Time spent: Greater than 30 minutes Exam Vital Signs Temp Pulse Resp BP Pulse Ox O2 Del Method 97.6 F 79 18 137/83 H 99 Room Air 1125/25 08:00 02/13/25 08:00 02/13/25 08:00 02/13/25 08:00 02/13/25 08:00 02/13/25 08:00 Narrative Exam GENERAL: no acute distress, AAO x3, comfortably sitting at edge of bed HEENT: Head AT/ NC. Mucous membranes moist. PERRL. NECK: Supple, no lymphadenopathy, no carotid bruits. CARDIOVASCULAR: RRR. Normal S1/S2, No m/r/g. No pitting edema of bilateral LEs. RESPIRATORY: CTAB. No wheezing, rhonchi, crackles. GASTROINTESTINAL: Abdomen soft, non tender no palpable masses. Bowel sounds present MUSCULOSKELETAL:? No cyanosis or edema, no visible joint swelling. non tremulous. NEUROLOGICAL: CN II-XII grossly intact. No focal deficits. Sensation intact, symmetric. PSYCHIATRIC: Awake and alert, not agitated, normal mood and affect. SKIN: No obvious rashes, no jaundice, normal turgor. Discharge Plan Plan Patient Disposition: HOME (Self Care) Patient condition on transfer: Stable Care Plan Goals: - We recommend that you stop drinking. - please take the folic acid and thiamine vitamins daily -Follow up with PCP within 1 week of discharge, if you do not have a primary care physician you can come see us at the [facility] by calling [phone] -Continue rest of medications as previously prescribed -Return to the ED or call EMS if symptoms return and/or worsen -Le recomendamos que deje de beber. - Bennet las vitaminas de ?cido f?patricia y tiamina a diario. - Realice pedro consulta de seguimiento con pineda m?dico de cabecera dentro de la semana posterior al jc. Si no tiene un m?dico de cabecera, puede visitarnos en la [facility] llamando al [phone]. - Contin?e tomando el nagi de samra medicamentos seg?n lo prescrito previamente. - Regrese a urgencias o llame al servicio m?dico de emergencias si los s?ntomas reaparecen o empeoran. Prescriptions/Referrals Prescriptions/Med Rec: New folic acid 1 mg Tablet 1 mg PO QDAY 30 Days Qty: 30 0RF thiamine mononitrate (vit B1) 100 mg Tablet 100 mg PO QDAY 30 Days Qty: 30 0RF Discontinued chlordiazepoxide HCl 25 mg capsule 25 mg PO Q6H MDD 4 Qty: 30 0RF Referrals: No Primary/Family,Physician [Primary Care Provider] Patient/Caregiver Discharge Instructions Discharge Activity: activity as tolerated Other Discharge Activity Instructions:: Follow-up with primary care for referral to outpatient/inpatient detox services. Education Materials: The Impact of Alcoholism, Alcohol Addiction, Alcohol Withdrawal: What to Expect, Addiction: Getting Help, Treating Drug Abuse and Addiction Print Language: Italian Stand Alone Forms: [employer] Award Info., Patient Portal Info Letter Discharge Order Discharge Orders: Discharge (Routine); Ordered 02/13/25 Ordered By: Giovanni Ku Quality Discharge Quality Measures VTE prophylaxis Attestestation MD Attestation I have seen and examined the patient. I was physically present for the beltran portions of the services provided including history, physical exam, diagnosis, treatment plans and orders. I agree with assessment and plan of care as documented by residents. Even though this this note was carefully revised there may still be minor errors in sales assistant displays due to voice recognition software. Art Olmedo MD
[2025-02-13] MEDS: MAGNESIUM OXIDE 400 MG TABLET PO (11:36)
[2025-02-13 12:00] VITALS: BP 129/88; PULSE 84; PULSE 95; RESP 18; TEMP 36.7; O2SAT 98
[2025-02-13 14:45] VITALS: BP 134/80; PULSE 86; RESP 18; TEMP 36.9; O2SAT 99
== END 2025-02-13 15:10 | disposition home or self-care (01) | DRG 775 ==
LOC: SERX 20:53 → SERHOLD 02-10 00:25 → S2NX 02-10 04:29 → S3NX 02-12 03:45
PROVIDERS: Nurse Practitioner Family; Admitting Provider Student in an Organized Health Care Education/Training Program; Emergency Provider Family Medicine; Visit Provider Student in an Organized Health Care Education/Training Program
DX: F10.139 Alcohol abuse with withdrawal, unspecified (principal); F10.129 Alcohol abuse with intoxication, unspecified; K76.0 Fatty (change of) liver, not elsewhere classified; K70.10 Alcoholic hepatitis without ascites; Y90.8 Blood alcohol level of 240 mg/100 ml or more; F41.9 Anxiety disorder, unspecified; R01.1 Cardiac murmur, unspecified
CPT/HCPCS: 36415; 71045; 76705; 80053; 80061; 80074; 80307; 80320; 81001; 82248; 83036; 83735; 83880; 84100; 84439; 84443; 84484; 85025; 85610; 85730; 93005; 93306; 96361; 96374; 96375; 96376; 99284; J1650; J2060; J2250; J2405; J2765; J3475; J7120; A9270; G0480